=== PATIENT | female | born 1995 | race Hispanic/Latino ===

== ENCOUNTER 2018-11-13 07:46 | Emergency (ER) | payer BC ==
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
--- NOTE | 2018-11-13 08:12 | EDPHYS ---
Physician Documentation [facility] Name: Kandy Kemp Age: 23 yrs Sex: Female : 1995 Arrival Date: 11/13/2018 Time: 07:48 Bed 15 Private MD: Topher Dominguez B ED Physician Saeid Chapman HPI: 11/13 08:09 This 23 yrs old Female presents to ER via Ambulatory with complaints of pm1 Foreign Body In Ear. 08:09 The patient presents with a foreign body sensation. The complaints affect the right pm1 ear. Onset: The symptoms/episode began/occurred this morning. Modifying factors: The symptoms are alleviated by nothing, the symptoms are aggravated by nothing. Associated signs and symptoms: Pertinent positives: pain. Severity of symptoms: in the emergency department the symptoms are unchanged. The patient has not experienced similar symptoms in the past. The patient has not recently seen a physician. 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 - Social history:: Smoking status: Patient/guardian denies using tobacco. - Ebola Screening: : No symptoms or risks identified at this time. ROS: 08:09 Constitutional: Negative for fever, chills, and weight loss, Eyes: Negative for injury, pm1 pain, redness, and discharge. 08:09 Cardiovascular: Negative for chest pain, palpitations, and edema, Respiratory: Negative for shortness of breath, cough, wheezing, and pleuritic chest pain, MS/Extremity: Negative for injury and deformity, Skin: Negative for injury, rash, and discoloration, Neuro: Negative for headache, weakness, numbness, tingling, and seizure. 08:09 ENT: Positive for ear pain, foreign body sensation, Negative for drainage from ear(s). Exam: 08:09 Constitutional: This is a well developed, well nourished patient who is awake, alert, pm1 and in no acute distress. Head/Face: Normocephalic, atraumatic. 08:09 Chest/axilla: Normal chest wall appearance and motion. Nontender with no deformity. No lesions are appreciated. Cardiovascular: Regular rate and rhythm with a normal S1 and S2. No gallops, murmurs, or rubs. Normal PMI, no JVD. No pulse deficits. Respiratory: Lungs have equal breath sounds bilaterally, clear to auscultation and percussion. No rales, rhonchi or wheezes noted. No increased work of breathing, no retractions or nasal flaring. Skin: Warm, dry with normal turgor. Normal color with no rashes, no lesions, and no evidence of cellulitis. MS/ Extremity: Pulses equal, no cyanosis. Neurovascular intact. Full, normal range of motion. 08:09 ENT: External ear(s): are unremarkable, Ear canal(s): foreign body, a piece of a Q-tip, TM's: are normal, no evidence of bulging, no rupture, post removal of foreign body, Examination of the other ear shows no obvious abnormality. 08:09 Neuro: Orientation: is normal, Motor: is normal, moves all fours, Gait: is steady, at a normal pace, without difficulty. Vital Signs: 08:00 BP 105 / 71; Pulse 57; Resp 16 S; Temp 98.3(O); Pulse Ox 99% on R/A; Weight 52.62 kg jl7 (R); Pain 0/10; Procedures: 08:09 Foreign Body Removal: cotton ball, from the right by using alligator clamps, The pm1 patient tolerated the removal well. MDM: 07:55 Patient medically screened. pm1 08:09 Counseling: I had a detailed discussion with the patient and/or guardian regarding: the pm1 historical points, exam findings, and any diagnostic results supporting the discharge/admit diagnosis, to return to the emergency department if symptoms worsen or persist or if there are any questions or concerns that arise at home. 08:09 Data reviewed: vital signs. pm1 Administered Medications: No medications were administered Disposition: 08:41 Co-signature as Attending Physician, Saeid Chapman MD. rn Disposition: 11/13/18 08:11 Discharged to Home. Impression: Foreign body in right ear. - Condition is Stable. - Discharge Instructions: Ear Foreign Body. - Medication Reconciliation Form, Thank You Letter, Antibiotic Education, Prescription Opioid Use form. - Follow up: Emergency Department; When: As needed; Reason: Worsening of condition. Follow up: Private Physician; When: As needed; Reason: Recheck today's complaints, Continuance of care, Re-evaluation by your physician. - Problem is new. - Symptoms have improved. Signatures: Saeid Chapman MD MD rn Marinas, Patrick, RECOVERY UNIT OPERATOR RECOVERY UNIT OPERATOR pm1 Chepe Quinteros RN RN jl7 Corrections: (The following items were deleted from the chart) 08:25 08:11 11/13/2018 08:11 Discharged to Home. Impression: Foreign body in right ear. jl7 Condition is Stable. Forms are Medication Reconciliation Form, Thank You Letter, Antibiotic Education, Prescription Opioid Use. Follow up: Emergency Department; When: As needed; Reason: Worsening of condition. Follow up: Private Physician; When: As needed; Reason: Recheck today's complaints, Continuance of care, Re-evaluation by your physician. Problem is new. Symptoms have improved. pm1
--- NOTE | 2018-11-13 08:26 | ER ---
Nurse's Notes [facility] Name: Kandy Kemp Age: 23 yrs Sex: Female : 1995 Arrival Date: 11/13/2018 Time: 07:48 Bed 15 Private MD: Topher Dominguez B Diagnosis: Foreign body in right ear Presentation: 11/13 08:00 Presenting complaint: Patient states: Cleaning my ear and the cotton came off in my jl7 left ear. Transition of care: patient was not received from another setting of care. Onset of symptoms was November 13, 2018. Risk Assessment: Do you want to hurt yourself or someone else? Patient reports no desire to harm self or others. Initial Sepsis Screen: Does the patient meet any 2 criteria? No. Patient's initial sepsis screen is negative. Does the patient have a suspected source of infection? No. Patient's initial sepsis screen is negative. Care prior to arrival: None. 08:00 Method Of Arrival: Ambulatory jl7 08:00 Acuity: FENG 4 jl7 Triage Assessment: 08:00 General: Appears in no apparent distress. uncomfortable, Behavior is calm, cooperative, jl7 appropriate for age. Pain: Denies pain. EENT: Ear canal w/ foreign body noted from left ear. Neuro: Level of Consciousness is awake, alert, obeys commands. Cardiovascular: Patient's skin is warm and dry. Respiratory: Airway is patent Respiratory effort is even, unlabored, Respiratory pattern is regular, symmetrical. Derm: Skin is pink, warm \T\ dry. 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 - Social history:: Smoking status: Patient/guardian denies using tobacco. - Ebola Screening: : No symptoms or risks identified at this time. Screenin:00 Abuse screen: Denies threats or abuse. Denies injuries from another. Nutritional jl7 screening: No deficits noted. Tuberculosis screening: No symptoms or risk factors identified. Fall Risk None identified. Assessment: 08:23 General: See triage assessment. jl7 Vital Signs: 08:00 BP 105 / 71; Pulse 57; Resp 16 S; Temp 98.3(O); Pulse Ox 99% on R/A; Weight 52.62 kg jl7 (R); Pain 0/10; ED Course: 07:48 Patient arrived in ED. rg4 07:49 Topher Dominguez MD is Private Physician. rg4 07:55 [facility] pm1 07:55 Saeid Chapman MD is Attending Physician. pm1 08:00 Arm band placed on right wrist. jl7 08:00 Patient has correct armband on for positive identification. Bed in low position. Call jl7 light in reach. Side rails up X 1. 08:05 Assist provider with foreign body removal of cotton from left ear canal. using jl7 alligator clamps, Set up for procedure. Performed by Michael Kerr NP Patient tolerated well. 08:18 Chepe Quinteros RN is Primary Nurse. jl7 08:20 Triage completed. jl7 08:23 Patient did not have IV access during this emergency room visit. jl7 Administered Medications: No medications were administered Outcome: 08:11 Discharge ordered by MD. pm1 08:23 Discharged to home ambulatory. jl7 08:23 Condition: stable 08:23 Discharge instructions given to patient, Instructed on discharge instructions, follow up and referral plans. Demonstrated understanding of instructions, follow-up care. 08:25 Patient left the ED. jl7 Signatures: Michael Kerr NP HEAD SOFT SUGAR OPERATOR pm1 Bhupendra Niurka rg4 Chepe Quinteros RN RN jl7 Corrections: (The following items were deleted from the chart) 08:25 08:23 No provider procedures requiring assistance completed. jl7 jl7
[2018-11-13 08:31] VITALS: BP 105/71; TEMP 98.3; O2SAT 99
== END 2018-11-13 08:25 | disposition home or self-care (01) ==
LOC: ER 07:46
PROC: 09C3XZZ Extirpation of Matter from Right External Auditory Canal, External Approach (ICD-10-PCS; principal; 2018-11-13)
DX: T16.1XXA Foreign body in right ear, initial encounter (principal); Z88.8 Allergy status to other drugs, medicaments and biological substances
CPT/HCPCS: 99283

== ENCOUNTER 2021-05-12 11:07 | Inpatient (IN) | payer BC, OTHER ==
[2021-05-19 10:23] LABS: Absolute Lymphocytes (CBC) 1.7 K/uL (0.7-4.9); Hematocrit 29.6 % (36.0-45.0); Lymphocytes % 20.2 % (15.3-44.8); MPV 7.7 fL (7.6-11.3); RBC Red Blood Cell Count 3.62 M/uL (3.86-4.86)
[2021-05-19 10:25] LABS: Urine Appearance CLOUDY (Clear); Urine Bilirubin NEGATIVE (Negative); Urine Blood NEGATIVE (Negative); Urine Color YELLOW (Yellow); Urine Glucose NEGATIVE (Negative); Urine Protein NEGATIVE (Negative); Urine Urobilinogen 0.2 mg/dL (0.2-1.0); Urine pH 7.5 (5.0-7.0)
[2021-05-19 10:29] LABS: Protime INR 0.91
[2021-05-19 10:44] LABS: Urine Bacteria >50 /HPF (<20); Urine RBC <5 /HPF (NONE SEEN)
[2021-05-19 21:29] LABS: RPR (Rapid Plasma Reagin) NON-REACT (NON-REACT)
[2021-05-22] MEDS ORDERED: Ringers Lactate 1,000 ML IV PRN (04:04)
[2021-05-22] MEDS ORDERED: NA CIT/CITRIC AC 30 ML ORAL UDC PO ONE (04:13)
[2021-05-22 04:53] VITALS: O2SAT 99
[2021-05-22] MEDS ORDERED: Ringers Lactate 1,000 ML IV SCH (05:00)
[2021-05-22] MEDS ORDERED: CEFAZOLIN 2 GM in NA CHLORIDE 0.9% 50 ML IVPB SCH (05:00)
[2021-05-22] MEDS ORDERED: METOCLOPRAMIDE 10 MG/2mL INJ IV SCH (05:00)
[2021-05-22] MEDS ORDERED: METHYLERGONOVINE 0.2MG/ML AMP IM ONE (05:01)
[2021-05-22] MEDS ORDERED: METHYLERGONOVINE 0.2 MG TAB PO PRN (05:04)
[2021-05-22] MEDS ORDERED: CEFAZOLIN/SWI 2gm 2 GM/20 ML SYR ONE (05:36)
[2021-05-22 05:39] VITALS: BMI 25.0
[2021-05-22] MEDS ORDERED: RINGERS LACTATE IV SCH ×2 (06:00)
[2021-05-22] MEDS ORDERED: OXYTOCIN IV SCH ×2 (06:00)
[2021-05-22] MEDS: FAMOTIDINE 20 MG/2 ML VIAL IV SCH (06:09)
[2021-05-22] MEDS ORDERED: MORPHINE SULFATE/PF 1 MG/ML (10 ML AMP) ONE (06:56)
[2021-05-22] MEDS ORDERED: BUPIVACAINE 0.5% PF 10 ML VIAL ONE (06:57)
[2021-05-22] MEDS ORDERED: LIDOCAINE 2% MPF 5 ML VIAL ONE (06:57)
[2021-05-22] MEDS ORDERED: OXYTOCIN 10 UNIT/ML ML ONE ×2 (07:03→07:59)
[2021-05-22] MEDS ORDERED: Phenylephrine HCl 10 MG/ML 1 ML VIAL ONE (07:03)
[2021-05-22] MEDS ORDERED: NS 0.9% VIAL 10 ML ONE (07:28)
[2021-05-22] MEDS ORDERED: KETAMINE HCL 500 MG/5 ML VIAL ONE (07:45)
[2021-05-22] MEDS ORDERED: INFLUENZA VACCINE (for 6+ mo) 0.5 ML DOSE IMVAC ONE (08:00)
[2021-05-22] MEDS ORDERED: ACETAMINOPHEN 500 MG TAB PO PRN (08:15)
[2021-05-22] MEDS ORDERED: Oxycodone HCl/Acetaminophen 1 TAB TAB PO PRN ×2 (08:15)
[2021-05-22] MEDS ORDERED: DIPHENHYDRAMINE 50 MG/ML VIAL IV PRN (08:34)
[2021-05-22] MEDS ORDERED: PROMETHAZINE INJ 25 MG/ML AMP IV PRN (08:35)
[2021-05-22] MEDS: MORPHINE 2 MG/ML SYR IV PRN ×2 (08:41→08:58)
[2021-05-22] MEDS ORDERED: ONDANSETRON 4 MG/2 ML VIAL IV PRN (10:24)
[2021-05-22] MEDS: KETOROLAC 30 MG/ML INJ IV PRN (10:24)
[2021-05-22] MEDS ORDERED: ONDANSETRON 4 MG (ODT) TAB PO PRN (10:24)
[2021-05-22] MEDS ORDERED: BISACODYL 10 MG RECTAL SUPP RC PRN (10:24)
[2021-05-22] MEDS ORDERED: CEFAZOLIN/SWI 2gm 2 GM/20 ML SYR IV ONE (10:30)
[2021-05-22] MEDS ORDERED: OXYTOCIN/LR 20 UNIT/1,000 ML BAG IV SCH (11:00)
[2021-05-22] MEDS: D5LR 1,000 ML with OXYTOCIN 20 UNIT IV SCH ×4 (11:00→17:54)
[2021-05-22] MEDS: ACETAMINOPHEN 500 MG TAB PO PRN (12:46)
[2021-05-22] MEDS: IBUPROFEN 600 MG TAB PO PRN (15:25)
[2021-05-22] MEDS: DIPHENHYDRAMINE 25 MG TAB/CAP PO PRN ×2 (15:27→21:33)
[2021-05-22 17:29] LABS: Hematocrit 22.9 % (36.0-45.0)
[2021-05-22] MEDS: METHYLERGONOVINE 0.2 MG TAB PO SCH ×2 (18:18→22:15)
--- NOTE | 2021-05-22 19:03 | OP ---
Surgeon: Faustino Wood MD Anesthesiologist: Dr. Irizarry. Indications For Procedure: A 26-year-old, 39 weeks' gestation, 2 previous C-sections, for repeat esteban arean section. Infection; blood loss; anesthetic complications; injury to bladder, bowel, ureter; po stoperative complications; clots in legs; pneumonia discussed. The patient knows fully well, does no t constitute all the possible problems that could occur during or following surgery. Anesthesia: Spinal block anesthesia. Description Of Procedure: After the patient was prepped and draped, incision was checked with Allis clamps and patient had no response. Incision was made. The incision was made through the fascia. T he fascia was incised and incision carried transversely bilaterally. Anterior and posterior fascial planes were developed. The patient stated that she can feel something, although she was not extremel y uncomfortable at that point. During the remainder of procedure, the patient was given several medi cations by Anesthesia and subsequently did well. The peritoneum was entered bluntly. Low transverse uterine incision was created. A 6 pounds female was delivered without difficulties. Apgars 9 and 9 . Cord blood specimen obtained. Placenta removed manually. Uterus cleared of clot and blood and ext eriorized. Cervical os closed. Cervical os dilated with ring clamp. Uterus was closed with a runni ng locked stitch of 1 chromic followed by an imbricating running lock stitch from midline to the righ t angle. Mild uterine hypertonus, 0.2 mg of Methergine plus IV drip Pitocin. Estimated blood loss 9 00 cc. The gutters were cleared of clot and blood. Uterus replaced in the peritoneal cavity. Inspe ction of suture line showed no further bleeding. Rectus muscles reapproximated using 2 interrupted s utures of 0 Vicryl. The fascia was closed using 1 Vicryl running from either angle to the midline. Subcutaneous tissue closed with 2-0 plain. Nell used for the skin. Patient had been given 2 g of Ancef prior to the procedure. Transferred back to her room in good condition. Final Diagnoses: Term intrauterine . Repeat section. Spinal block anesthesia plus IV supplemental medications. FELYC/MODL Voice ID: [id number] Report ID: [id number]
[2021-05-23] MEDS: METHYLERGONOVINE 0.2 MG TAB PO SCH ×2 (02:14→06:17)
[2021-05-23] MEDS ORDERED: CARBOPROST TROME 250 MCG/ML IM ONE (03:00)
[2021-05-23] MEDS: KETOROLAC 30 MG/ML INJ IV PRN (08:12)
[2021-05-23] MEDS: FAMOTIDINE 20 MG/2 ML VIAL IV SCH (08:12)
[2021-05-23] MEDS ORDERED: MAGNESIUM HYDROXIDE 8% 30 ML PO PRN (08:15)
--- NOTE | 2021-05-23 08:34 | PN ---
Postoperatively, the patient has done quite well. She is only taking Motrin for discomfort. She say s her pain level is 2. Lochia is normal. H and H went a little bit lower than expected, but she did have mild hypotonus and she has been anemic throughout the entire , so I think she is compe nsated. Her pulses are in the 70 range. No complaints or problems this morning. We will remove the [place] and IV. She has already been ambulating. We will start p.o. intake and if all goes well, sen d her home tomorrow. She will probably get her Tdap shot before she leaves the hospital as she has n ot had it. The only complaint she has is some itching, which of course would be from the medications in the spinal block. Full postop talk given. Anticipate dismissal tomorrow. BENI/DARYN Voice ID: [id number] Report ID: [id number]
--- NOTE | 2021-05-23 14:10 | PREOPHP ---
Date of Admission: 05/22/2021 History Of Present Illness: A 26-year-old 4, para 2, 2 previous C-sections will be 39 weeks on Saturday for repeat section. Infection; blood loss; anesthetic complications; injury to bl adder, bowel, ureter; postoperative complications; clots in legs and pneumonia discussed. The patien t knows fully well, she does not constitute all the possible problems that could occur during or foll owing surgery. Family History: Paternal grandfather with hypertension. A sister with cardiac abnormality at . The patient had surgery on her right 2 C sections, breast implants. She is allergic to steroid she says, history of chlamydia in 2013, herpes in 2016. No evidence of herpes actively at this point. Social History: Does not smoke. Physical Examination: HEENT: Clear. Pupils equal, round, reactive to light and accommodation. Conjunctivae well perfused. No oral, lingual, or buccal lesions. Chest: Lungs clear. Heart: Without murmurs, thrills, heaves, or rubs. Breasts: Without masses on previous visits. Abdomen: Term. Baby is vertex, but very high. Cervix is fingertip. Extremities: Clear without edema, cyanosis, or clubbing. Assessment And Plan: For repeat section on Saturday. BENI/DARYN Voice ID: [id number]
[2021-05-23] MEDS: ACETAMINOPHEN 500 MG TAB PO PRN (14:24)
[2021-05-23] MEDS: IBUPROFEN 600 MG TAB PO PRN (16:06)
[2021-05-23 19:53] LABS: HBsAG Nonreactive (Nonreactive)
[2021-05-24] MEDS: IBUPROFEN 600 MG TAB PO PRN ×2 (00:25→09:00)
--- NOTE | 2021-05-24 08:07 | DS ---
Hospital Course: Kandy Sanders is a 26-year-old female, 2 previous sections, for repeat section. The patient had spinal block anesthesia that was not entirely adequate. Was given ketamine and the procedure was then completed without problems. Mild uterine hypertonus, 0.2 mg of Methergine as well as IV drip massage as well as IV drip Pitocin. The patient had anemia on admission, admission hematocrit of about 30 which fell to 23, stable and she was completely asymptomatic with a pulse is being in the 70s and 80s at the entire time postoperatively. No postspinal block problems other than pruritus which is now resolved. A 6-pound female , Apgars 9 and 9. Estimated blood loss _[id number] . The patient is Rh positive, immune to Rubella. Negative strep. She did not get her Tdap shot during the , but requested before she leaves. She has no complaints or problems. She has been using Motrin only for analgesia. Requests no analgesics. Other than that, she is to come back to my office in 1 week for followup to report any temperature elevation of 100 degrees or greater, severe pain, heavy bleeding, or any other type of abnormalities. Final Diagnosis: Repeat section, mild uterine hypotonus. BENI/DARYN Voice ID: [id number] Report ID: [id number]
[2021-05-24] MEDS ORDERED: TDAP (DIPHTH,PERTUSS(ACELL),TET VAC) 0.5 ML VIAL IMVAC ONE (09:00)
[2021-05-24] MEDS ORDERED: INFLUENZA VACCINE (for 6+ mo) 0.5 ML DOSE IMVAC ONE (09:00)
[2021-05-24 09:34] VITALS: BP 112/65; TEMP 98
== END 2021-05-24 09:30 | disposition home or self-care (01) | DRG 788 ==
LOC: 2ND-WC 05-22 04:05
PROVIDERS: ADMIT Specialist; ATTEND Specialist
PROC: 10D00Z1 Extraction of Products of Conception, Low, Open Approach (ICD-10-PCS; principal; 2021-05-22 07:30)
DX: O34.211 Maternal care for low transverse scar from previous cesarean delivery (principal); O99.02 Anemia complicating childbirth; D64.9 Anemia, unspecified; O62.2 Other uterine inertia; Z3A.39 39 weeks gestation of pregnancy; Z37.0 Single live birth; Z23 Encounter for immunization; Z20.822 Contact with and (suspected) exposure to COVID-19
CPT/HCPCS: 36415; 81001; 85014; 85018; 85025; 85610; 85730; 86592; 86850; 86900; 86901; 87086; 87088; 87340; 88307; 90471; J0690; J2210; J2270; J2370; J2405; J2590; J2765; J7120; J7121; Q2035; U0003

== ENCOUNTER 2022-05-31 07:30 | Emergency (ER) | payer OTHER ==
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
[2022-05-31 08:16] LABS: Absolute Lymphocytes (CBC) 1.6 K/uL (0.7-4.9); Hematocrit 30.8 % (36.0-45.0); Lymphocytes % 21.4 % (15.3-44.8); MCV 77.3 fL (80-100); MPV 7.2 fL (7.6-11.3); RBC Red Blood Cell Count 3.99 M/uL (3.86-4.86)
[2022-05-31 08:17] LABS: Specific Gravity 1.011 (1.005-1.030); Urine Bilirubin NEGATIVE (Negative); Urine Blood 1+ (Negative); Urine Clarity Clear (Clear); Urine Color Colorless (Yellow); Urine Glucose NEGATIVE (Negative); Urine Protein NEGATIVE (Negative); Urine Urobilinogen Normal (Normal)
[2022-05-31 08:42] LABS: Potassium 3.2 mEq/L (3.5-5.1)
[2022-05-31] MEDS ORDERED: NA CHLORIDE 0.9% 1,000 ML ONE (09:00)
[2022-05-31] MEDS ORDERED: ACETAMINOPHEN 500 MG TAB ONE (09:00)
--- NOTE | 2022-05-31 10:08 | RAD REPORT ---
EXAM DESCRIPTION: US - OB Limited - 05/31/2022 8:50 am CLINICAL HISTORY: Abd cramping, ;Vaginal bleeding COMPARISON: OB Complete dated 04/24/2021 TECHNIQUE: Sonographic grayscale and color flow images of a first-trimester were obtained through a transabdominal approach. FINDINGS: A single live intrauterine is identified. Fetus in variable presentation heart rate: 152 beats per minute. dating was not performed. Cervical internal os is closed. Cervical channel measures 1.9 centimeter. Placenta is formed posterio rly with few small venous lakes within. No evidence of subchorionic fluid collections. Maternal ovaries are unremarkable. No free fluid. IMPRESSION: 1. Single live intrauterine . heart rate 152 beats per minute.
--- NOTE | 2022-05-31 10:22 | ER ---
Nurse's Notes [facility] Name: Kandy Sanders Age: 27 yrs Sex: Female : 1995 Arrival Date: 05/31/2022 Time: 07:33 Bed 7 Private MD: Diagnosis: Threatened Presentation: 05/31 07:48 Chief complaint: Patient states: "GUSH OF BLOOD CAME OUT AT 0400." USED 4 PADS TODAY. bp Coronavirus screen: At this time, the client does not indicate any symptoms associated with coronavirus-19. Ebola Screen: No symptoms or risks identified at this time. Initial Sepsis Screen: Does the patient meet any 2 criteria? No. Patient's initial sepsis screen is negative. Does the patient have a suspected source of infection? No. Patient's initial sepsis screen is negative. Risk Assessment: Do you want to hurt yourself or someone else? Patient reports no desire to harm self or others. Onset of symptoms was May 31, 2022 at 04:00. 07:48 Method Of Arrival: Ambulatory bp 07:48 Acuity: FENG 3 bp Triage Assessment: 07:52 General: Appears uncomfortable, Behavior is cooperative, appropriate for age, anxious. bp Pain: Complains of pain in pelvis. EENT: No deficits noted. Neuro: No deficits noted. Cardiovascular: No deficits noted. Respiratory: No deficits noted. GI: No signs and/or symptoms were reported involving the gastrointestinal system. : Reports vaginal bleeding that is heavy flow. Derm: No deficits noted. Musculoskeletal: No deficits noted. 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 - Social history:: Smoking status: Patient denies any tobacco usage or history of. Screenin:45 [facility] ED Fall Risk Assessment (Adult) History of falling in the last 3 months, bp including since admission No falls in past 3 months (0 pts). Abuse screen: Denies threats or abuse. Denies injuries from another. Nutritional screening: No deficits noted. Tuberculosis screening: No symptoms or risk factors identified. Assessment: 07:45 General: SEE TRIAGE NOTE. bp 09:01 Reassessment: PT RETURNED FROM US. bp Vital Signs: 07:48 BP 134 / 79; Pulse 71; Resp 16; Temp 98; Pulse Ox 100% ; Weight 56.7 kg; Height 5 ft. 3 bp in. ; 09:00 BP 101 / 69; Pulse 58; Resp 16; Pulse Ox 100% ; bp 07:48 Body Mass Index 22.14 (56.70 kg, 160.02 cm) bp ED Course: 07:33 Patient arrived in ED. am2 07:44 Rahul Parker MD is Attending Physician. jr11 07:45 Patient has correct armband on for positive identification. Bed in low position. Call bp light in reach. Side rails up X2. 07:46 Hank Brock, RN is Primary Nurse. bp 07:50 Triage completed. bp 07:51 Mikaela Haney FNP-C is PHCP. snw 07:53 Arm band placed on. bp 07:53 Inserted saline lock: 20 gauge in right antecubital area, using aseptic technique. bp Blood collected. 08:32 Abo/rh Typing Sent. bp 08:32 US OB Limited Sent. bp 09:26 US OB Limited In Process Unspecified. EDMS 10:43 No provider procedures requiring assistance completed. IV discontinued, intact, jl7 bleeding controlled, No redness/swelling at site. Pressure dressing applied. Administered Medications: 09:01 Drug: Acetaminophen PO 1000 mg Route: PO; bp 09:01 Drug: NS 0.9% IV 1000 ml Route: IV; Rate: 1 bolus; Site: right antecubital; bp Medication: 10:44 VIS not applicable for this client. jl7 Outcome: 10:21 Discharge ordered by . snw 10:43 Discharged to home ambulatory, with family. jl7 10:43 Condition: stable 10:43 Discharge instructions given to patient, family, Instructed on discharge instructions, follow up and referral plans. Demonstrated understanding of instructions, follow-up care. 10:44 Patient left the ED. jl7 Signatures: Dispatcher [employer] EDMS Mikaela Haney FNP-C FNP-Josselyn Shankar RN RN Chepe Quinteros RN RN jl7 Susie Agustin am2 Hank Brock, ENA RN bp Rahul Parker MD MD [email or web address] Corrections: (The following items were deleted from the chart) 09: 08:31 CBC+H.LAB.BRZ drawn and sent. bp EDMS 09:43 08:31 BASIC METABOLIC PANEL+C.LAB.BRZ drawn and sent. bp EDMS 09:44 08:31 Test, Urine+UC.LAB.BRZ drawn and sent. bp EDMS 09:44 08:32 Urinalysis+U.LAB.BRZ drawn and sent. bp EDMS
--- NOTE | 2022-05-31 10:22 | EDPHYS ---
Physician Documentation [facility] Name: Kandy Sanders Age: 27 yrs Sex: Female : 1995 Arrival Date: 05/31/2022 Time: 07:33 Bed 7 Private MD: ED Physician aRhul Parker HPI: 05/31 09:05 This 27 yrs old Female presents to ER via Ambulatory with complaints of snw Vaginal Bleeding. 09:05 The patient presents with vaginal bleeding that is moderate, with clots. Onset: The snw symptoms/episode began/occurred suddenly, this morning. Associated signs and symptoms: Pertinent positives: cramping. Severity of symptoms: At their worst the symptoms were moderate. The patient has not experienced similar symptoms in the past. The patient has not recently seen a physician. 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 - Social history:: Smoking status: Patient denies any tobacco usage or history of. ROS: 09:05 Constitutional: Negative for fever, chills, and weight loss, Eyes: Negative for injury, snw pain, redness, and discharge, ENT: Negative for injury, pain, and discharge, Neck: Negative for injury, pain, and swelling, Cardiovascular: Negative for chest pain, palpitations, and edema, Respiratory: Negative for shortness of breath, cough, wheezing, and pleuritic chest pain, Back: Negative for injury and pain, MS/Extremity: Negative for injury and deformity, Skin: Negative for injury, rash, and discoloration, Neuro: Negative for headache, weakness, numbness, tingling, and seizure, Psych: Negative for depression, anxiety, suicide ideation, homicidal ideation, and hallucinations. 09:05 Abdomen/GI: Positive for abdominal cramps. 09:05 : Positive for vaginal bleeding. Exam: 09:04 Constitutional: This is a well developed, well nourished patient who is awake, alert, snw and in no acute distress. Head/Face: Normocephalic, atraumatic. Eyes: Pupils equal round and reactive to light, extra-ocular motions intact. Lids and lashes normal. Conjunctiva and sclera are non-icteric and not injected. Cornea within normal limits. Periorbital areas with no swelling, redness, or edema. ENT: Nares patent. No nasal discharge, no septal abnormalities noted. Tympanic membranes are normal and external auditory canals are clear. Oropharynx with no redness, swelling, or masses, exudates, or evidence of obstruction, uvula midline. Mucous membranes moist. Neck: Trachea midline, no thyromegaly or masses palpated, and no cervical lymphadenopathy. Supple, full range of motion without nuchal rigidity, or vertebral point tenderness. No Meningismus. Chest/axilla: Normal chest wall appearance and motion. Nontender with no deformity. No lesions are appreciated. Cardiovascular: Regular rate and rhythm with a normal S1 and S2. No gallops, murmurs, or rubs. Normal PMI, no JVD. No pulse deficits. Respiratory: Lungs have equal breath sounds bilaterally, clear to auscultation and percussion. No rales, rhonchi or wheezes noted. No increased work of breathing, no retractions or nasal flaring. Back: No spinal tenderness. No costovertebral tenderness. Full range of motion. Skin: Warm, dry with normal turgor. Normal color with no rashes, no lesions, and no evidence of cellulitis. MS/ Extremity: Pulses equal, no cyanosis. Neurovascular intact. Full, normal range of motion. Neuro: Awake and alert, GCS 15, oriented to person, place, time, and situation. Cranial nerves II-XII grossly intact. Motor strength 5/5 in all extremities. Sensory grossly intact. Cerebellar exam normal. Normal gait. 09:04 Abdomen/GI: Inspection: abdomen appears normal, Bowel sounds: normal, Palpation: mild abdominal tenderness, in the left lower quadrant. Vital Signs: 07:48 BP 134 / 79; Pulse 71; Resp 16; Temp 98; Pulse Ox 100% ; Weight 56.7 kg; Height 5 ft. 3 bp in. ; 09:00 BP 101 / 69; Pulse 58; Resp 16; Pulse Ox 100% ; bp 07:48 Body Mass Index 22.14 (56.70 kg, 160.02 cm) bp MDM: 07:51 Patient medically screened. snw 10:22 Differential diagnosis: dysmenorrhea, urinary tract infection. Data reviewed: vital snw signs, nurses notes. Counseling: I had a detailed discussion with the patient and/or guardian regarding: the historical points, exam findings, and any diagnostic results supporting the discharge/admit diagnosis, lab results, radiology results, the need for outpatient follow up, for definitive care, to return to the emergency department if symptoms worsen or persist or if there are any questions or concerns that arise at home. Special discussion: Based on the history and exam findings, there is no indication for further emergent testing or inpatient evaluation. I discussed with the patient/guardian the need to see the OB Gyne specialist for further evaluation of the symptoms. 10:30 ED course: headache resolved. Pt in no distress. Labs and US report given to pt. snw 05/31 07:50 Order name: Abo/rh Typing bp 05/31 08:29 Order name: CBC with Automated Diff EDMS 05/31 08:29 Order name: Test, Urine EDMS 05/31 08:29 Order name: Urinalysis w/ reflexes EDMS 05/31 08:43 Order name: ABO/RH typing EDMS 05/31 08:43 Order name: Basic Metabolic Panel EDMS 05/31 07:59 Order name: US OB Limited; Complete Time: 10:17 snw 05/31 07:50 Order name: IV Saline Lock; Complete Time: 07:51 bp 05/31 07:50 Order name: Labs collected and sent; Complete Time: 07:51 bp 05/31 07:50 Order name: NPO; Complete Time: 07:51 bp Administered Medications: 09:01 Drug: Acetaminophen PO 1000 mg Route: PO; bp 09:01 Drug: NS 0.9% IV 1000 ml Route: IV; Rate: 1 bolus; Site: right antecubital; bp Disposition: 13:04 I reviewed the patient's care provided by the Advanced Practice Provider and agree with jr11 the diagnosis and treatment plan. Disposition Summary: 05/31/22 10:21 Discharge Ordered Location: Home snw Condition: Stable snw Diagnosis - Threatened snw Followup: snw - With: Emergency Department - When: As needed - Reason: Worsening of condition Followup: snw - With: Private Physician - When: 2 - 3 days - Reason: Recheck today's complaints, Continuance of care, Re-evaluation by your physician Discharge Instructions: - Discharge Summary Sheet snw - Care snw - Vaginal Bleeding During , First Trimester snw - Vaginal Bleeding During , Second Trimester, Jymt-iv-[id number] snw Forms: - Medication Reconciliation Form snw - Thank You Letter snw - Antibiotic Education snw - Prescription Opioid Use snw Signatures: Dispatcher [employer] EDMS Mikaela Haney, KNITTING MACHINE MECHANIC-C KNITTING MACHINE MECHANIC-Csnw Josselyn Glasgow, RN RN ss Hank Brock RN RN bp Rahul Parker MD MD [email or web address] Corrections: (The following items were deleted from the chart) 09:22 ABO/RH typing ordered. EDMS EDMS 09:22 OB Limited ordered. EDMS EDMS 09:43 08:30 BASIC METABOLIC PANEL+C.LAB.BRZ ordered. EDMS EDMS :43 08:30 CBC+H.LAB.BRZ ordered. EDMS EDMS 09:44 08:30 Urinalysis+U.LAB.BRZ ordered. EDMS EDMS :44 08:30 Test, Urine+UC.LAB.BRZ ordered. EDMS EDMS
[2022-05-31 15:31] VITALS: TEMP 98; O2SAT 100
[2022-05-31 15:37] VITALS: BP 101/69
== END 2022-05-31 10:44 | disposition home or self-care (01) ==
LOC: ER 07:30
DX: O20.0 Threatened abortion (principal); Z88.8 Allergy status to other drugs, medicaments and biological substances
CPT/HCPCS: 85025; 80048; 36415; 86900; 81025; 86901; 81003; 76815; 99284; J7030

== ENCOUNTER 2023-01-16 23:26 | Emergency (ER) | payer OTHER ==
--- OUTSIDE RECORDS SUMMARY | 2023-01-16 23:31 | XMS REPORT | Continuity of Care Document ---
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 [id number] 14:19:00 Test Item Value Reference Range Interpretation Comments SODIUM (test code = 139 mEq/L 135-145 N NA) POTASSIUM (test code 3.9 mEq/L 3.5-5.0 N = K) CHLORIDE (test code 105 mEq/L 100-115 N = CL) CARBON DIOXIDE (test 21 mEq/L 22-31 L code = CO2) ANION GAP (test code 17.30 10-20 N = GAP) GLUCOSE (test code = 69 mg/dL 65-110 N GLU) BLOOD UREA NITROGEN 5 mg/dL 7-18 L (test code = BUN) CREATININE (test 0.6 mg/dL 0.5-1.0 N code = CREAT) TOTAL PROTEIN (test 7.0 gm/dL 6.3-8.2 N code = PROT) ALBUMIN (test code = 3.1 gm/dL 3.4-4.8 L ALB) CALCIUM (test code = 9.2 mg/dL 8.4-10.2 N CA) BILIRUBIN TOTAL 0.3 mg/dL 0.2-1.0 N (test code = BILT) SGOT/AST (test code 15 units/L 15-37 N = AST) SGPT/ALT (test code 12 units/L 12-78 N = ALT) ALKALINE PHOSPHATASE 183 units/L 46-116 H TOTAL (test code = ALKP) GLOMERULAR 127 ml/min >60 N The Glomerular FILTRATION RATE Filtration R ate is a (test code = GFR) calculated parameterbased on serum Creatinin e, patient age and sex. GFR valuesless than 60 mL/min/1.73 squ are meters are winsome cative ofChronic Kidne y Disease. Values less than 15 mL/min/1.73squa re meters indicate Kidney failure. The calculation for GFR is based on the CK D-EPI (2020) calculat ion. This formulais race indifferent and is the recommended for charlie for GFRby the N ational Kidney Foundati on for Adults.The GFR will not calculate i f the sex is unknown or if thepatient's ag e is <18 years. CBC W/AUTO [id number] 21:58:00 Test Item Value Reference Range Interpretation Comments WHITE BLOOD CELL (test 8.9 K/mm3 6.5-12.3 N code = WBC) RED BLOOD CELL (test 3.99 M/mm3 3.51-4.69 N code = RBC) HEMOGLOBIN (test code = 10.3 g/dL 10.1-13.8 N HGB) HEMATOCRIT (test code = 33.5 % 32.5-41.8 N HCT) MEAN CELL VOLUME (test 84.0 fL 84.6-96.6 L code = MCV) MEAN CELL HGB (test 25.8 pg 27.3-33.9 L code = MCH) MEAN CELL HGB 30.7 gm/dL 32.0-34.2 L CONCETRATION (test code = MCHC) RED CELL DISTRIBUTION 27.2 % 12.2-16.3 H WIDTH (test code = RDW) PLATELET COUNT (test 219 K/mm3 134-363 N code = PLT) MEAN PLATELET VOLUME 10.1 fL 9.2-12.7 N (test code = MPV) NEUTROPHIL % (test code 71.3 % 57.9-77.3 N = NT%) LYMPHOCYTE % (test code 19.0 % 14.5-29.7 N = LY%) MONOCYTE % (test code = 7.5 % 3.6-10.2 N MO%) EOSINOPHIL % (test code 1.3 % 0.0-3.0 N = EO%) BASOPHIL % (test code = 0.2 % 0.1-0.9 N BA%) NEUTROPHIL # (test code 6.4 K/mm3 = NT#) LYMPHOCYTE # (test code 1.7 K/mm3 = LY#) MONOCYTE # (test code = 0.7 K/mm3 MO#) EOSINOPHIL # (test code 0.12 K/mm3 = EO#) BASOPHIL # (test code = 0.0 K/mm3 BA#) RBC MORPHOLOGY REQUIRED ABNORMAL NORMAL MACR 1+MICRO 1+ANISO (test code = RBCM) 1+ PLATELET MORPHOLOGY ABNORMAL NORMAL LARGE PL ATELETS REQUIRED (test code = PLTMR) AG HEPATITIS B [id number] 19:18:00 Test Item Value Reference Range Interpretation Comments AG HEPATITIS B SURFACE (test code NONREACTIVE NONREACTIVE = HBSAG) AB HEPATITIS C [id number] 19:18:00 Test Item Value Reference Range Interpretation Comments AB HEPATITIS C (test code = NONREACTIVE NONREACTIVE HCVAB) SIGNAL TO CUTOFF (test code = 0.06 <0.80 N CUTOFF) AB [id number] 19:18:00 Test Item Value Reference Range Interpretation Comments AB TREPONEMA (test code = TREPAB) NONREACTIVE NONREACTIVE AB HIV 1 19:18:00 Test Item Value Reference Range Interpretation Comments AB HIV 1 2 (test NONREACTIVE NONREACTIVE Done by [facility] code = [id number]) 4th Gen HIV Ag/Ab Combo Screen COMPREHENSIVE METABOLIC [id number] 18:42:00 Test Item Value Reference Range Interpretation Comments SODIUM (test code = 138 mEq/L 135-145 N NA) POTASSIUM (test code 3.8 mEq/L 3.5-5.0 N = K) CHLORIDE (test code 102 mEq/L 100-115 N = CL) CARBON DIOXIDE (test 23 mEq/L 22-31 N code = CO2) ANION GAP (test code 16.80 10-20 N = GAP) GLUCOSE (test code = 82 mg/dL 65-110 N GLU) BLOOD UREA NITROGEN 8 mg/dL 7-18 N (test code = BUN) CREATININE (test 0.6 mg/dL 0.5-1.0 N code = CREAT) TOTAL PROTEIN (test 6.5 gm/dL 6.3-8.2 N code = PROT) ALBUMIN (test code = 2.8 gm/dL 3.4-4.8 L ALB) CALCIUM (test code = 8.8 mg/dL 8.4-10.2 N CA) BILIRUBIN TOTAL 0.2 mg/dL 0.2-1.0 N (test code = BILT) SGOT/AST (test code 15 units/L 15-37 N = AST) SGPT/ALT (test code 9 units/L 12-78 L = ALT) ALKALINE PHOSPHATASE 166 units/L 46-116 H TOTAL (test code = ALKP) GLOMERULAR 127 ml/min >60 N The Glomerular FILTRATION RATE Filtration R ate is a (test code = GFR) calculated parameterbased on serum Creatinin e, patient age and sex. GFR valuesless than 60 mL/min/1.73 squ are meters are winsome cative ofChronic Kidne y Disease. Values less than 15 mL/min/1.73squa re meters indicate Kidney failure. The calculation for GFR is based on the CK D-EPI (2020) calculat ion. This formulais race indifferent and is the recommended for charlie for GFRby the N ational Kidney Foundati on for Adults.The GFR will not calculate i f the sex is unknown or if thepatient's ag e is <18 years. BASIC METABOLIC [id number] 20:22:00 Test Item Value Reference Range Interpretation Comments SODIUM (test code = 134 mEq/L 135-145 L NA) POTASSIUM (test code 3.3 mEq/L 3.5-5.0 L = K) CHLORIDE (test code 101 mEq/L 100-115 N = CL) CARBON DIOXIDE (test 23 mEq/L 22-31 N code = CO2) ANION GAP (test code 13.70 10-20 N = GAP) GLUCOSE (test code = 81 mg/dL 65-110 N GLU) BLOOD UREA NITROGEN 7 mg/dL 7-18 N (test code = BUN) GLOMERULAR 127 ml/min >60 N The Glomerular FILTRATION RATE Filtration R ate is a (test code = GFR) calculated parameterbased on serum Creatinine, pat ient age and sex. GFR va luesless than 60 mL/min/ 1.73 square meters a re indicative ofCh ronic Kidney Disease. Values less than 15 mL/min/1.73squa re meters indicate Kidney failure. The calculation for GFR is based on the CK D-EPI (2020) calculat ion. This formulais race indifferent and is the recommended for charlie for GFRby the Natio nal Kidney Foundati on for Adults.The GFR will not calculate if th e sex is unknown or if thepatient's ag e is <18 years. CREATININE (test 0.6 mg/dL 0.5-1.0 N code = CREAT) CALCIUM (test code = 9.0 mg/dL 8.4-10.2 N CA) LIVER [id number] 20:22:00 Test Item Value Reference Range Interpretation Comments TOTAL PROTEIN (test code = PROT) 7.6 gm/dL 6.3-8.2 N ALBUMIN (test code = ALB) 3.5 gm/dL 3.4-4.8 N BILIRUBIN TOTAL (test code = BILT) 0.2 mg/dL 0.2-1.0 N BILIRUBIN DIRECT (test code = 0.1 mg/dL <0.2 N BILD) SGOT/AST (test code = AST) 10 units/L 15-37 L SGPT/ALT (test code = ALT) 15 units/L 12-78 N ALKALINE PHOSPHATASE TOTAL (test 61 units/L 46-116 N code = ALKP) [id number] 20:22:00 Test Item Value Reference Range Interpretation Comments LIPASE (test code = LIP) 66 units/L 73-393 L HCG [id number] 20:08:00 Test Item Value Reference Range Interpretation Comments HCG SERUM (test 78304 INTERPRETATI ON:VALUES BETWEEN code = HCG) 15-20 milliInte rnational units/mL NEED T O BERETESTED WITHIN 48 HOURS . All units for these ranges ar e in milliInternatio nalunits/mL0-1 WK AFTER CONCEP TION 0-50 1-2 WKS AFTER SHANE PTION 40-3002-3 WKS AFTER SHANE PTION 100-1,0003-4 WK S AFTER CONCEPTION 500- 6,0001-2 MONTHS AFTER CONCEPTIO N 5,000-200,0002- 3 MONTHS AFTER CONCEPTION 10,0 00-100,0002ND TRIMESTER 3,000 -50,0003RD TRIMESTER 1,000 -50,000 SPECIMENS WITH AN HCG LEVEL FROM 0-6 milliInternatio nalunits/mL SHOULD BE CONSI DERED NEGATIVE CBC W/AUTO [id number] 19:22:00 Test Item Value Reference Range Interpretation Comments WHITE BLOOD CELL (test code = WBC) 8.6 K/mm3 6.5-12.3 N RED BLOOD CELL (test code = RBC) 4.05 M/mm3 3.51-4.69 N HEMOGLOBIN (test code = HGB) 10.4 g/dL 10.1-13.8 N HEMATOCRIT (test code = HCT) 32.1 % 32.5-41.8 L MEAN CELL VOLUME (test code = MCV) 79.3 fL 84.6-96.6 L MEAN CELL HGB (test code = MCH) 25.7 pg 27.3-33.9 L MEAN CELL HGB CONCETRATION (test 32.4 gm/dL 32.0-34.2 N code = MCHC) RED CELL DISTRIBUTION WIDTH (test 15.6 % 12.2-16.3 N code = RDW) PLATELET COUNT (test code = PLT) 304 K/mm3 134-363 N MEAN PLATELET VOLUME (test code = 9.1 fL 9.2-12.7 L MPV) NEUTROPHIL % (test code = NT%) 64.2 % 57.9-77.3 N LYMPHOCYTE % (test code = LY%) 27.3 % 14.5-29.7 N MONOCYTE % (test code = MO%) 7.3 % 3.6-10.2 N EOSINOPHIL % (test code = EO%) 0.8 % 0.0-3.0 N BASOPHIL % (test code = BA%) 0.2 % 0.1-0.9 N NEUTROPHIL # (test code = NT#) 5.5 K/mm3 LYMPHOCYTE # (test code = LY#) 2.4 K/mm3 MONOCYTE # (test code = MO#) 0.6 K/mm3 EOSINOPHIL # (test code = EO#) 0.07 K/mm3 BASOPHIL # (test code = BA#) 0.0 K/mm3 RBC MORPHOLOGY REQUIRED (test code NORMAL NORMAL = RBCM) PLATELET MORPHOLOGY REQUIRED (test NORMAL NORMAL code = PLTMR) UA RFLX MICR CULT IF [id number] 19:16:00 Test Item Value Reference Range Interpretation Comments UA COLOR (test code = COLU) COLORLESS YELLOW UA APPEARANCE (test code = CLEAR CLEAR APPU) UA GLUCOSE DIPSTICK (test code NEGATIVE NEG = DGLUU) UA BILIRUBIN DIPSTICK (test NEGATIVE NEG code = BILU) UA KETONE DIPSTICK (test code 1+ NEG A = KETU) UA SPECIFIC GRAVITY (test code 1.008 1.001-1.035 N = SGU) UA BLOOD DIPSTICK (test code = 1+ NEG A JASE) UA PH DIPSTICK (test code = 6.0 5-9 SUZY) UA PROTEIN DIPSTICK (test code NEGATIVE NEG = PROU) UA UROBILINIOGEN DIPSTICK NEGATIVE mg/dL NEG (test code = URO) UA NITRITE DIPSTICK (test code NEG NEG = RAJANI) UA LEUKOCYTE ESTERASE DIPSTICK NEG NEG (test code = LEUU) UA WBC (test code = WBCU) 0-2 #/hpf NONE SEEN UA RBC (test code = RBCU) 0-2 #/hpf NONE SEEN UA EPITHELIAL CELLS (test code RARE #/HPF RARE-FEW = EPIU) UA BACTERIA (test code = BACU) RARE /HPF RARE-FEW UA MUCUS (test code = MUCU) RARE NONE SEEN Indication for culture: Suprapubic PainSpecimen Description: CLEAN CATCH- US PREG UT [id number] 00:00:00 [facility] 1995 Sex: F Patient Name: CHRISTIANO ROJAS Unit No: [id number] EXAMS: CPT CODE: [id number] US PREG UT TRANSVAGINAL 27798 PROCEDURE INFORMATION: Exam: US , Limited and US , Transvaginal Exam date and time: 05/31/2022 8:54 PM Age: 27 years old Clinical indication: Lmp or gestational age (in weeks): 15.0; Antepartum complications; Bleeding; complicated by abdominal or pelvic pain; Lower; Second trimester (14 weeks 0 days to 27 weeks 6 days); ; Prior surgery; Surgery type: C/s x3; Additional info: Vag bleed, abd pain LABS AND CLINICAL REPORTS: Last menstrual period start date: 02/22/2022 Gestational age (Established): 14 w 0 d Estimated due date (Established): 11/29/2022 TECHNIQUE: Imaging protocol: Real-time ultrasound of the maternal uterus with image documentation. Transvaginal imaging was used for better evaluation of the fetus, adnexa, and/or cervix. Exam focused on the clinical indication. COMPARISON: No relevant prior studies available. FINDINGS: EGA by LMP: 14weeks 0 day LULÚ by LMP: 11/29/2022 Gestation: Dowd Presentation: Variable heart rate: 137bpm Amniotic fluid: Amniotic fluid is normal. Single deep amniotic fluid pocket measures 3.1 cm. Placenta: Posterior, grade 1. Complete placenta previa seen. There is a 2.0 x 0.5 x 3.5 cm subchorionic bleed in air placental tip/cervix. Cervical length: 3.6 cm Right ovary: Right ovary measures 2.2 x 1.2 x 1.7 cm. Normal flow seen. Left ovary: Left ovary measures 2.6 x 1.6 x 1.7 cm. Normal flow seen. IMPRESSION: 1. Single viable intrauterine gestation in the presentation. 2. There is a 2.0 x 0.5 x 3.5 cm subchorionic bleed in air placental tip/cervix. 3. Complete placenta previa. at 2217 Reported and signed by: Ghulam Manriquez M.D. The [facility] NAME: CHRISTIANO ROJAS Radiology Department PHYS: Ivette Engle MD [address] : 1995 AGE: 27 SEX: F [place] [address] LOC: Javier.ERS PHONE #: [phone] EXAM DATE: 05/31/2022 STATUS: REG ER FAX #: [phone] RAD NO: Page 1 Signed Report (CONTINUED) Patient Name: CHRISTIANO ROJAS Unit No: [id number] EXAMS: CPT CODE: [id number] US PREGUT TRANSVAGINAL 47232 (Continued) CC: Ivette Head MD; Nereida Canales MD Technologist: Do Reeves RDMS Probe: [id number] Trnscrbd D/ (2216) GCD.CPS Orig Print D/T: S: 05/31/2022 (2216) [facility] NAME: BOBCHRISTIANO Radiology Department PHYS: Ivette Engle MD [address] : 1995 AGE: 27 SEX: F [place], [place] [address] LOC: F.ERS PHONE #: [phone] EXAM DATE: 05/31/2022 STATUS: REG ER FAX #: [phone] RAD NO: P age 3 Signed Report Patient Name: CHRISTIANO ROJAS Unit No: [id number] EXAMS: CPT CODE: [id number] PREG UT TRANSVAGINAL 22905 (Continued) [facility] NAME: CHRISTIANO ROJAS Radiology Department PHYS: Ivette Engle MD [address] : 1995 AGE: 27 SEX: F [place], [place] [address] LOC: HeribertoERS PHONE #: [phone] EXAM DATE: 05/31/2022 STATUS: REG ER FAX #: [phone] RAD NO: Page 3 Signed Report- US [id number] 00:00:00 [facility] : 1995 Sex: F Patient Name: CHRISTIANO ROJAS Unit No: [id number] EXAMS: CPT CODE: [id number] US LTD [id number] INFORMATION: Exam: US , Limited and US , Transvaginal Exam date and time: 05/31/2022 8:54 PM Age: 27 years old Clinical indication: Lmp or gestational age (in weeks): 15.0; Antepartum complications; Bleeding; complicated by abdominal or pelvic pain; Lower; Second tr imester (14 weeks 0 days to 27 weeks 6 days); ; Prior surgery; Surgery type: C/s x3; Additional info: Vag bleed, abd pain LABS AND CLINICAL REPORTS: Last menstrual period start date: 02/22/2022Gestational age (Established): 14 w 0 d Estimated due date (Established): 11/29/2022 TECHNIQUE: Imaging protocol: Real-time ultrasound of the maternal uterus with image documentation. Transvaginal imaging was used for better evaluation of the fetus, adnexa, and/or cervix. Exam focused on the clinical indication. COMPARISON: No relevant prior studies available. FINDINGS: EGA by LMP: 14 weeks 0day LULÚ by LMP: 11/29/2022 Gestation: Dowd Presentation: Variable heart rate: 137 bpm Amniotic fluid: Amniotic fluid is normal. Single deep amniotic fluid pocket measures 3.1 cm. Placenta: Posterior, grade 1. Complete placenta previa seen. There is a 2.0 x 0.5 x 3.5 cm subchorionic bleed inair placental tip/cervix. Cervical length: 3.6 cm Right ovary: Right ovary measures 2.2 x 1.2 x 1.7 cm. Normal flow seen. Left ovary: Left ovary measures 2.6 x 1.6 x 1.7 cm. Normal flow seen. IMPRESSION : 1. Single viable intrauterine gestation in the presentation. 2. There is a 2.0 x 0.5 x 3.5 cm subchorionic bleed in air placental tip/cervix. 3. Complete placenta previa. at 2217 Reported and signed by: Ghulam Manriquez M.D. [facility] NAME: CHRISTIANO ROJAS Radiology Department PHYS: Ivette Engle MD [address] : 1995 AGE: 27 SEX: F [place], [place] [address] LOC: CHRISTIAN PHONE #: [phone] EXAM DATE: 05/31/2022 STATUS: REG ER FAX #: [phone] RAD NO: Page 1 Signed Report (CONTINUED) Patient Name: CHRISTIANO ROJAS Unit No: [id number] EXAMS: CPT CODE: [id number] US [id number] (Continued) CC: Ivette Head MD; Nereida Canales MD Technologist: Do Reeves RDMS Probe: Trnscrbd D/ (2217) GCD.CPS Orig Print D/T: S: 05/31/2022 (2217) [facility] NAME: CHRISTIANO ROJAS Radiology Department PHYS: Ivette Engle MD [address]OB: 1995 AGE: 27 SEX: F [place] [id number] LOC: F.ERS PHONE #: [phone] EXAM DATE: 05/31/2022 STATUS: REG ER FAX #: [phone] RAD NO: Page 2 Signed Report Patient Name: CHRISTIANO ROJAS Unit No: [id number] EXAMS: CPT CODE: [id number] LTD 51217 (Continued) [facility] NAME: DIONISIO ROJASANTHA Radiology Department PHYS: Ivette Engle MD [address] : 1995 AGE: 27 SEX: F [place], [place] [address] LOC: F.ERS PHONE #: [phone] EXAM DATE: 05/31/2022 STATUS: REG ER FAX #: [phone] RAD NO: Page 3 Signed ReportPOCT FLU A AND B (MOLECULAR)2019-05-31 19:52:00 Test Item Value Reference Range Interpretation Comments POCT INFLUENZA A (test code = negative Negative - Negative 3840) POCT INFLUENZA B (test code = negative Negative - Negative 3841) [facility]2019-05-31 19:52:00 Test Item Value Reference Range Interpretation Comments POCT INFLUENZA A (test code = negative Negative - Negative 3840) POCT INFLUENZA B (test code = negative Negative - Negative 3841) [facility]2016-[facility]-02 22:04:00 Test Item Value Reference Range Interpretation Comments MCH (test code = MCH) 30.5 pg 27.0-31.0 [facility] [id number] 22:04:00 Test Item Value Reference Range Interpretation Comments WBC (test code = WBC) 8.5 3.7-10.4 [facility] [id number] 22:04:00 Test Item Value Reference Range Interpretation Comments RBC (test code = RBC) 3.81 4.20-5.40 [facility] [id number] 22:04:00 Test Item Value Reference Range Interpretation Comments MCV (test code = MCV) 89.2 80.0-98.0 [facility] [id number] 22:04:00 Test Item Value Reference Range Interpretation Comments Hct (test code = Hct) 34.0 36.0-48.0 [facility] CenterLeopcnwHBRJBTSSTK7750-05-17 22:04:00 Test Item Value Reference Range Interpretation Comments Hgb (test code = Hgb) 11.6 12.0-16.0 [facility] CenterIijgvaaFDDJHYNSCH8221-53-58 22:04:00 Test Item Value Reference Range Interpretation Comments Segs (test code = Segs) 67.9 45.0-75.0 [place] [id number] 22:04:00 Test Item Value Reference Range Interpretation Comments Lymphocytes # (test code = Lymphocytes 1.6 1.0-5.5 #) [facility] Cent[id number] 22:04:00 Test Item Value Reference Range Interpretation Comments Monocytes # (test code 1.0 See_Comment [Aut omated message] The = Monocytes #) system which generated this result tra nsmitted reference range : <=0.8. The reference r felisa was not used to int erpret this result as normal/abnormal . [facility] CenterVanntmzNTSZNVXYFG0550-59-45 22:04:00 Test Item Value Reference Range Interpretation Comments Segs-Bands # (test code = Segs-Bands #) 5.8 1.5-8.1 [facility] CenterUgabxexEYWSZMKSPP0311-86-18 22:04:00 Test Item Value Reference Range Interpretation Comments Basophils (test code = 0.4 See_Comment [Aut omated message] The Basophils) system which ge nerated this result tra nsmitted reference range : <=1.0. The reference r felisa was not used to int erpret this result as normal/abnormal . [facility] C[id number] 22:04:00 Test Item Value Reference Range Interpretation Comments Eosinophils (test code = 0.3 See_Comment [A utomated message] The Eosinophils) system which ge nerated this result tra nsmitted reference range : <=4.0. The reference r felisa was not used to int erpret this result as normal/abnormal . [facility] AreaUbjpovzSNJVYBTEAR6812-35-09 22:04:00 Test Item Value Reference Range Interpretation Comments Monocytes (test code = Monocytes) 11.9 2.0-12.0 [facility]qbhTPJXVAODYG8196-45-23 22:04:00 Test Item Value Reference Range Interpretation Comments Lymphocytes (test code = Lymphocytes) 19.5 20.0-40.0 [facility] [id number] 22:04:00 Test Item Value Reference Range Interpretation Comments ABO/Rh (test code = ABO/Rh) O POS [facility] [id number] 22:04:00 Test Item Value Reference Range Interpretation Comments Antibody Scrn (test Negative (07/11/15 5:04 code = Antibody Scrn) PM) [facility] AreaCHE[facility] [id number] 22:04:00 Test Item Value Reference Range Interpretation Comments Lactic Acid Lvl (test code = Lactic 1.1 0.5-2.2 Acid Lvl) [facility] HospitalZorybyyIDUIZWVMMGAT6584-86-04 22:04:00 Test Item Value Reference Range Interpretation Comments AGAP (test code = AGAP) 13.3 10.0-20.0 [facility] HospitalKvfdpwqBANBYHMKRFAS9218-97-17 22:04:00 Test Item Value Reference Range Interpretation Comments eGFR (test code = eGFR) 71 [facility] HospitalCjzyfmyTMLSJCPHZUCX8489-05-94 22:04:00 Test Item Value Reference Range Interpretation Comments Calcium Lvl (test code = Calcium Lvl) 8.7 8.5-10.5 [facility] HospitalToqbcdxJIDEEOMUKOAF6906-94-72 22:04:00 Test Item Value Reference Range Interpretation Comments CO2 (test code = CO2) 20 24-32 [facility] HospitalNuzihkuYGZBXSOGDDUJ9108-27-00 22:04:00 Test Item Value Reference Range Interpretation Comments Chloride Lvl (test code = Chloride Lvl) 106 95-109 [facility] HospitalErbyjydAPWKPEGSHVDB3720-18-04 22:04:00 Test Item Value Reference Range Interpretation Comments Potassium Lvl (test code = Potassium 3.3 3.5-5.1 Lvl) [facility] HospitalRwpfolsMKNAFEXVZBVH5341-78-00 22:04:00 Test Item Value Reference Range Interpretation Comments Sodium Lvl (test code = Sodium Lvl) 136 135-145 [facility] HospitalLtbiwgiIXUQIUIUIPAZ0882-55-27 22:04:00 Test Item Value Reference Range Interpretation Comments Creatinine Lvl (test code = Creatinine 0.51 0.50-1.40 Lvl) [facility] HospitalFdfhlcsLUUCAOVCWQWO8209-59-14 22:04:00 Test Item Value Reference Range Interpretation Comments BUN (test code = BUN) 3 7-22 [facility] HospitalVwuuuipNUTPZFWVRMLV0066-46-02 22:04:00 Test Item Value Reference Range Interpretation Comments Glucose Lvl (test code = Glucose Lvl) 92 70-99 [facility]du[facility]kkHUOMZEMUTK8541-97-04 22:04:00 Test Item Value Reference Range Interpretation Comments Estimated % Lysis Rapid 6.4 See_Comment [Au tomated message] The (test code = Estimated syste m which generated % Lysis Rapid) this result t ransmitted reference range : <=7.5. The reference r felisa was not used to int erpret this result as normal/abnormal . [facility] CenterDkphjreHFYLZALPJO0689-98-02 22:04:00 Test Item Value Reference Range Interpretation Comments G-value Rapid (test code = G-value 8.1 5.0-11.6 Rapid) [facility] CenterKvwojafROZBCPSGEG0808-50-74 22:04:00 Test Item Value Reference Range Interpretation Comments K-time Rapid (test code = K-time 1.3 min 0.6-2.3 Rapid) [facility] CenterSintwimZZLAQKOVWX2640-42-01 22:04:00 Test Item Value Reference Range Interpretation Comments R-time Rapid (test code = R-time 0.7 min 0.4-0.7 Rapid) [facility] CenterHmcvbedGFVIVCXCXJ4684-05-53 22:04:00 Test Item Value Reference Range Interpretation Comments Angle Rapid (test code = Angle Rapid) 75 64-80 [facility] CenterAlwzkusEALFPXELSZ9292-85-09 22:04:00 Test Item Value Reference Range Interpretation Comments Max Amplitude Rapid (test code = Max 62 mm 52-71 Amplitude Rapid) [facility] CenterIwvkpbrETTMLBTDUU2978-23-99 22:04:00 Test Item Value Reference Range Interpretation Comments Split Point Rapid (test code = Split 0.6 min Point Rapid) [facility] CenterNoyoswnBDTYHURADA6380-89-37 22:04:00 Test Item Value Reference Range Interpretation Comments ACT (TEG) Rapid (test code = ACT (TEG) 113 s 86-118 Rapid) [facility] CenterLzzcokrQFMKTACPZB5243-67-81 22:04:00 Test Item Value Reference Range Interpretation Comments RDW (test code = RDW) 13.4 11.5-14.5 [facility] CenterVneftarRSDXGXNKWU9515-03-66 22:04:00 Test Item Value Reference Range Interpretation Comments MPV (test code = MPV) 8.1 7.4-10.4 [facility] CenterDvzrbhcBHNECRGMDL6546-50-92 22:04:00 Test Item Value Reference Range Interpretation Comments Platelet (test code = Platelet) 241 133-450 [facility] CenterFusvgzxGINUIMYPWP7065-72-91 22:04:00 Test Item Value Reference Range Interpretation Comments MCHC (test code = MCHC) 34.2 32.0-36.0 [facility] CenterWspjovnIMYWPAMQXJ3049-30-77 22:04:00 Test Item Value Reference Range Interpretation Comments MCH (test code = MCH) 30.5 pg 27.0-31.0 [facility] CenterUhmvspuMMLYGZTIGN9638-72-07 22:04:00 Test Item Value Reference Range Interpretation Comments WBC (test code = WBC) 8.5 3.7-10.4 [facility] CenterTpuhhaeXIXBLZZIED3687-15-59 22:04:00 Test Item Value Reference Range Interpretation Comments RBC (test code = RBC) 3.81 4.20-5.40 [facility] CenterBxnzgvvNEPLEXRXUE8248-05-17 22:04:00 Test Item Value Reference Range Interpretation Comments MCV (test code = MCV) 89.2 80.0-98.0 [facility] CenterFishyeiNCIZSXUKWH4611-18-88 22:04:00 Test Item Value Reference Range Interpretation Comments Hct (test code = Hct) 34.0 36.0-48.0 [facility] CenterLkhrvfqRNFXHERULI4187-94-83 22:04:00 Test Item Value Reference Range Interpretation Comments Hgb (test code = Hgb) 11.6 12.0-16.0 [facility] CenterHtpxnluZRJKTVJFYF8256-06-12 22:04:00 Test Item Value Reference Range Interpretation Comments Segs (test code = Segs) 67.9 45.0-75.0 [facility] CenterWowfetyZTUHNWPJKF3149-25-54 22:04:00 Test Item Value Reference Range Interpretation Comments Lymphocytes # (test code = Lymphocytes 1.6 1.0-5.5 #) [facility] CenterZordlkdAFQJWGLTDD3597-19-06 22:04:00 Test Item Value Reference Range Interpretation Comments Monocytes # (test code 1.0 See_Comment [Aut omated message] The = Monocytes #) system which generated this result tra nsmitted reference range : <=0.8. The reference r felisa was not used to int erpret this result as normal/abnormal . [facility] CenterNuxfwgkRYSKTMZBTE9612-53-80 22:04:00 Test Item Value Reference Range Interpretation Comments Segs-Bands # (test code = Segs-Bands #) 5.8 1.5-8.1 [facility]LrfngdmSTFXRJYKMX6160-88-84 22:04:00 Test Item Value Reference Range Interpretation Comments Basophils (test code = 0.4 See_Comment [Aut omated message] The Basophils) system which ge nerated this result tra nsmitted reference range : <=1.0. The reference r felisa was not used to int erpret this result as normal/abnormal . [facility] AreaGasilmeSCUKEATVGD5612-77-59 22:04:00 Test Item Value Reference Range Interpretation Comments Eosinophils (test code = 0.3 See_Comment [A utomated message] The Eosinophils) system which ge nerated this result tra nsmitted reference range : <=4.0. The reference r felisa was not used to int erpret this result as normal/abnormal . [facility] AreaHzcfdluROFHEDMTBE3942-51-76 22:04:00 Test Item Value Reference Range Interpretation Comments Monocytes (test code = Monocytes) 11.9 2.0-12.0 [facility] AreaImghhmyPGJBNCNKGM1309-45-62 22:04:00 Test Item Value Reference Range Interpretation Comments Lymphocytes (test code = Lymphocytes) 19.5 20.0-40.0 [facility] IEAWIWL1362-24-21 22:04:00 Test Item Value Reference Range Interpretation Comments ABO/Rh (test code = ABO/Rh) O POS [employer] UYKEDEJ6793-13-96 22:04:00 Test Item Value Reference Range Interpretation Comments ABO/Rh (test code = ABO/Rh) O POS [facility] IZVDABE8352-04-19 22:04:00 Test Item Value Reference Range Interpretation Comments Antibody Scrn (test Negative (07/11/15 5:04 code = Antibody Scrn) PM) [facility] [employer] NWWIU1497-48-43 22:04:00 Test Item Value Reference Range Interpretation Comments Lactic Acid Lvl (test code = Lactic 1.1 0.5-2.2 Acid Lvl) [facility] HospitalXgbcwhyRKNTQUPXQTCS6650-12-42 22:04:00 Test Item Value Reference Range Interpretation Comments AGAP (test code = AGAP) 13.3 10.0-20.0 [facility] HospitalAmqugbsBUCWHZPAUXTF8108-96-82 22:04:00 Test Item Value Reference Range Interpretation Comments eGFR (test code = eGFR) 71 [facility] HospitalKykjmptRIUMXVZVEQNJ9739-16-32 22:04:00 Test Item Value Reference Range Interpretation Comments Calcium Lvl (test code = Calcium Lvl) 8.7 8.5-10.5 [facility] HospitalOnfbhygIHAPLJZFAKGP3561-23-77 22:04:00 Test Item Value Reference Range Interpretation Comments CO2 (test code = CO2) 20 -32 [facility] HZUFXMU9907-80-88 22:04:00 Test Item Value Reference Range Interpretation Comments Antibody Scrn (test Negative (07/11/15 5:04 code = Antibody Scrn) PM) [facility] HospitalWodkybeBHBVIXKGVHXZ6670-17-25 22:04:00 Test Item Value Reference Range Interpretation Comments Chloride Lvl (test code = Chloride Lvl) 106 95-109 [facility] HospitalOddnqmpHRTHNSZEWNJF9768-25-68 22:04:00 Test Item Value Reference Range Interpretation Comments Potassium Lvl (test code = Potassium 3.3 3.5-5.1 Lvl) [facility] HospitalEsjhrlzAQQELHOVVFBJ0927-06-41 22:04:00 Test Item Value Reference Range Interpretation Comments Sodium Lvl (test code = Sodium Lvl) 136 135-145 [facility] HospitalAhsdkoaVRPMISUVLOGB5138-06-16 22:04:00 Test Item Value Reference Range Interpretation Comments Creatinine Lvl (test code = Creatinine 0.51 0.50-1.40 Lvl) [facility] HospitalOgimbhbUZBFBRANDGWD4762-95-80 22:04:00 Test Item Value Reference Range Interpretation Comments BUN (test code = BUN) 3 7-22 [facility] HospitalKofrnclGSMADCLINLGK6205-85-64 22:04:00 Test Item Value Reference Range Interpretation Comments Glucose Lvl (test code = Glucose Lvl) 92 70-99 [facility] AreaHumpjxfFPUTAVDAJL2305-52-89 22:04:00 Test Item Value Reference Range Interpretation Comments Estimated % Lysis Rapid (test code = 6.4 <=7.5 Estimated % Lysis Rapid) [facility] CenterVaudhfvVOKXFYAHRF5097-10-03 22:04:00 Test Item Value Reference Range Interpretation Comments G-value Rapid (test code = G-value 8.1 5.0-11.6 Rapid) [facility] CenterHjrbbjhOAHDJGDJOF9839-96-85 22:04:00 Test Item Value Reference Range Interpretation Comments K-time Rapid (test code = K-time 1.3 min 0.6-2.3 Rapid) [facility] CenterJnbabgrMBZTFPHXIA0832-27-92 22:04:00 Test Item Value Reference Range Interpretation Comments R-time Rapid (test code = R-time 0.7 min 0.4-0.7 Rapid) [facility]2016-05-02 22:04:00 Test Item Value Reference Range Interpretation Comments Lactic Acid Lvl (test code = Lactic 1.1 0.5-2.2 Acid Lvl) [facility] CenterYqsmvnyQODPJZRZXJ9971-09-06 22:04:00 Test Item Value Reference Range Interpretation Comments Angle Rapid (test code = Angle Rapid) 75 64-80 [facility] CenterLljxyjrIHWKRIHIOV4706-73-01 22:04:00 Test Item Value Reference Range Interpretation Comments Max Amplitude Rapid (test code = Max 62 mm 52-71 Amplitude Rapid) [facility] CenterNohjrkqCLKHEIOPFB7867-53-84 22:04:00 Test Item Value Reference Range Interpretation Comments Split Point Rapid (test code = Split 0.6 min Point Rapid) [facility] CenterHeqgetiYOQHBQXXCB9137-82-62 22:04:00 Test Item Value Reference Range Interpretation Comments ACT (TEG) Rapid (test code = ACT (TEG) 113 s 86-118 Rapid) [facility] CenterEabcnttQFFZAVCWAD6699-36-87 22:04:00 Test Item Value Reference Range Interpretation Comments RDW (test code = RDW) 13.4 11.5-14.5 [facility] CenterBprgjujODGECBIFHR3763-14-06 22:04:00 Test Item Value Reference Range Interpretation Comments MPV (test code = MPV) 8.1 7.4-10.4 [facility] CenterPzzqrsdIMJFXQEKFE8486-61-20 22:04:00 Test Item Value Reference Range Interpretation Comments Platelet (test code = Platelet) 241 133-450 [facility] CenterCszinzcSHJIZDSUIF8360-92-66 22:04:00 Test Item Value Reference Range Interpretation Comments MCHC (test code = MCHC) 34.2 32.0-36.0 [facility] AreaAgezaqwGBGTTWKBSM1289-16-67 22:04:00 Test Item Value Reference Range Interpretation Comments MCH (test code = MCH) 30.5 pg 27.0-31.0 [facility] HospitalBlyrbdeFGKKAPFWDB6692-22-09 22:04:00 Test Item Value Reference Range Interpretation Comments WBC (test code = WBC) 8.5 3.7-10.4 [facility]QAIPGZWVGDVF2644-42-60 22:04:00 Test Item Value Reference Range Interpretation Comments AGAP (test code = AGAP) 13.3 10.0-20.0 [facility] HospitalJnjmtbrRLKVOREDRT3921-52-68 22:04:00 Test Item Value Reference Range Interpretation Comments RBC (test code = RBC) 3.81 4.20-5.40 [facility] HospitalTuuwtlwNXPPFYMIHF4790-29-28 22:04:00 Test Item Value Reference Range Interpretation Comments MCV (test code = MCV) 89.2 80.0-98.0 [facility] CenterWyicvaeVJMPAJXOHT4449-84-10 22:04:00 Test Item Value Reference Range Interpretation Comments Hct (test code = Hct) 34.0 36.0-48.0 [facility] HospitalBlwfnbdDKESZPRKUA6324-01-58 22:04:00 Test Item Value Reference Range Interpretation Comments Hgb (test code = Hgb) 11.6 12.0-16.0 [facility] HospitalRrjrhixNYCIIISLOM2186-39-23 22:04:00 Test Item Value Reference Range Interpretation Comments Segs (test code = Segs) 67.9 45.0-75.0 [facility] CenterLjzqhyhGIOFSLNGMF0091-13-82 22:04:00 Test Item Value Reference Range Interpretation Comments Lymphocytes # (test code = Lymphocytes 1.6 1.0-5.5 #) [facility] HospitalZrzzfboWXVYKXRVQA9166-94-88 22:04:00 Test Item Value Reference Range Interpretation Comments Monocytes # (test code = Monocytes #) 1.0 <=0.8 [facility] CenterPdlqvfgNRWIPRVZQN1074-55-10 22:04:00 Test Item Value Reference Range Interpretation Comments Segs-Bands # (test code = Segs-Bands #) 5.8 1.5-8.1 [facility] CenterThrvpozKXABYWWMAP9114-74-64 22:04:00 Test Item Value Reference Range Interpretation Comments Basophils (test code = Basophils) 0.4 <=1.0 [facility] CenterMxjurwdYIHCLQUWUJ4375-08-86 22:04:00 Test Item Value Reference Range Interpretation Comments Eosinophils (test code = Eosinophils) 0.3 <=4.0 [facility] HospitalXpagwjoSQTJERLNAOSX4831-85-47 22:04:00 Test Item Value Reference Range Interpretation Comments eGFR (test code = eGFR) 71 [facility] CenterTkitoqsDAQDFHJWIJ9520-46-07 22:04:00 Test Item Value Reference Range Interpretation Comments Monocytes (test code = Monocytes) 11.9 2.0-12.0 [facility] CenterLjcpbvjMFXGRVKFGJ1872-01-35 22:04:00 Test Item Value Reference Range Interpretation Comments Lymphocytes (test code = Lymphocytes) 19.5 20.0-40.0 [facility] HospitalBurldsqDZPTFCYNPPVC9580-91-79 22:04:00 Test Item Value Reference Range Interpretation Comments Calcium Lvl (test code = Calcium Lvl) 8.7 8.5-10.5 [facility] HospitalBfbxhgcOEBSWZMDYWHL0136-63-05 22:04:00 Test Item Value Reference Range Interpretation Comments CO2 (test code = CO2) 20 24-32 [facility] HospitalLivlguvFQCRSKZVKGNA9988-34-37 22:04:00 Test Item Value Reference Range Interpretation Comments Chloride Lvl (test code = Chloride Lvl) 106 95-109 [facility] HospitalXvztijaQBGOHAACGXPW3494-50-08 22:04:00 Test Item Value Reference Range Interpretation Comments Potassium Lvl (test code = Potassium 3.3 3.5-5.1 Lvl) [facility] HospitalRnbvxopUHCOBRAXMAIJ4950-42-15 22:04:00 Test Item Value Reference Range Interpretation Comments Sodium Lvl (test code = Sodium Lvl) 136 135-145 [facility] HospitalUcwwhugOAWJPPWTEYNE4548-45-25 22:04:00 Test Item Value Reference Range Interpretation Comments Creatinine Lvl (test code = Creatinine 0.51 0.50-1.40 Lvl) [facility] HospitalNuplribRIBEJZBKAKYC1240-19-12 22:04:00 Test Item Value Reference Range Interpretation Comments BUN (test code = BUN) 3 7-22 [facility] HospitalCyvxfsdRMMPVPLLMGZO1828-89-53 22:04:00 Test Item Value Reference Range Interpretation Comments Glucose Lvl (test code = Glucose Lvl) 92 70-99 [facility] CenterFvzmpksVIZDBYSXDF0611-01-73 22:04:00 Test Item Value Reference Range Interpretation Comments Estimated % Lysis Rapid 6.4 See_Comment [Au tomated message] The (test code = Estimated syste m which generated % Lysis Rapid) this result t ransmitted reference range : <=7.5. The reference r felisa was not used to int erpret this result as normal/abnormal . [facility] CenterAxihgakCILMWFHTOH8926-25-28 22:04:00 Test Item Value Reference Range Interpretation Comments G-value Rapid (test code = G-value 8.1 5.0-11.6 Rapid) [place] [address]-05-02 22:04:00 Test Item Value Reference Range Interpretation Comments K-time Rapid (test code = K-time 1.3 min 0.6-2.3 Rapid) [facility] CenterKgndgrkPYGAVJXKBN5627-22-83 22:04:00 Test Item Value Reference Range Interpretation Comments R-time Rapid (test code = R-time 0.7 min 0.4-0.7 Rapid) [facility] CenterOojbtwlRQXQJOMBQW5959-12-47 22:04:00 Test Item Value Reference Range Interpretation Comments Angle Rapid (test code = Angle Rapid) 75 64-80 [facility] CenterEolaiomVWMAMOIPDZ7841-77-52 22:04:00 Test Item Value Reference Range Interpretation Comments Max Amplitude Rapid (test code = Max 62 mm 52-71 Amplitude Rapid) [facility] CenterXuekwlvIJYLZWBMHN5280-58-01 22:04:00 Test Item Value Reference Range Interpretation Comments Split Point Rapid (test code = Split 0.6 min Point Rapid) [facility] CenterMtwebmzJXOMJEIJSI9259-73-16 22:04:00 Test Item Value Reference Range Interpretation Comments ACT (TEG) Rapid (test code = ACT (TEG) 113 s 86-118 Rapid) [facility] CenterRcpvnnnXLFIZOIKUD5478-88-86 22:04:00 Test Item Value Reference Range Interpretation Comments RDW (test code = RDW) 13.4 11.5-14.5 [facility] CenterWoetbrvXFWKPXRZDG6895-72-64 22:04:00 Test Item Value Reference Range Interpretation Comments MPV (test code = MPV) 8.1 7.4-10.4 [facility] CenterVvmdnreSNEUPBUNFD7250-33-56 22:04:00 Test Item Value Reference Range Interpretation Comments Platelet (test code = Platelet) 241 133-450 [facility] CenterPjbpxojKNEWCRYKTM0490-46-32 22:04:00 Test Item Value Reference Range Interpretation Comments MCHC (test code = MCHC) 34.2 32.0-36.0 [facility] CenterVujwlxcSKFULXIVTQ6402-06-03 22:04:00 Test Item Value Reference Range Interpretation Comments MCH (test code = MCH) 30.5 pg 27.0-31.0 [facility] CenterJixnydlSBXFBBKTIG1827-05-06 22:04:00 Test Item Value Reference Range Interpretation Comments WBC (test code = WBC) 8.5 3.7-10.4 [facility] CenterFpgmpecWJKBPSLDGB3386-16-03 22:04:00 Test Item Value Reference Range Interpretation Comments RBC (test code = RBC) 3.81 4.20-5.40 [facility] CenterQfhktfcOXQDLEYMTL5033-98-29 22:04:00 Test Item Value Reference Range Interpretation Comments MCV (test code = MCV) 89.2 80.0-98.0 [facility] CenterQoqymtxXLCKAGIGVO3804-38-07 22:04:00 Test Item Value Reference Range Interpretation Comments Hct (test code = Hct) 34.0 36.0-48.0 [facility] CenterJftimwhZBMXOMVSIG6546-23-11 22:04:00 Test Item Value Reference Range Interpretation Comments Hgb (test code = Hgb) 11.6 12.0-16.0 [facility] CenterGsjkfyxISVDFLUYBM9601-95-05 22:04:00 Test Item Value Reference Range Interpretation Comments Segs (test code = Segs) 67.9 45.0-75.0 [facility] CenterLbjyagwHNEYFGKHAY6313-02-33 22:04:00 Test Item Value Reference Range Interpretation Comments Lymphocytes # (test code = Lymphocytes 1.6 1.0-5.5 #) [facility] CenterAltjzruVAASTGDAZH4303-74-73 22:04:00 Test Item Value Reference Range Interpretation Comments Monocytes # (test code 1.0 See_Comment [Aut omated message] The = Monocytes #) system which generated this result tra nsmitted reference range : <=0.8. The reference r felisa was not used to int erpret this result as normal/abnormal . [facility] CenterUwtuyxxOCVYBOIYDW5929-98-97 22:04:00 Test Item Value Reference Range Interpretation Comments Segs-Bands # (test code = Segs-Bands #) 5.8 1.5-8.1 [place] [address]-05-02 22:04:00 Test Item Value Reference Range Interpretation Comments Basophils (test code = 0.4 See_Comment [Aut omated message] The Basophils) system which ge nerated this result tra nsmitted reference range : <=1.0. The reference r felisa was not used to int erpret this result as normal/abnormal . [facility] CenterXngitfkRXDIGUAYXE1541-81-66 22:04:00 Test Item Value Reference Range Interpretation Comments Eosinophils (test code = 0.3 See_Comment [A utomated message] The Eosinophils) system which ge nerated this result tra nsmitted reference range : <=4.0. The reference r felisa was not used to int erpret this result as normal/abnormal . [facility] AreaKqckihpBRESAYGDHJ7605-58-82 22:04:00 Test Item Value Reference Range Interpretation Comments Monocytes (test code = Monocytes) 11.9 2.0-12.0 [facility] CenterQqzimglCMKRCAKFLE9459-52-88 22:04:00 Test Item Value Reference Range Interpretation Comments Lymphocytes (test code = Lymphocytes) 19.5 20.0-40.0 [facility] XDOCEUW8514-35-28 22:04:00 Test Item Value Reference Range Interpretation Comments ABO/Rh (test code = ABO/Rh) O POS [facility] QGZBZFD7656-75-61 22:04:00 Test Item Value Reference Range Interpretation Comments Antibody Scrn (test Negative (07/11/15 5:04 code = Antibody Scrn) PM) [facility] [employer]CHEM LGUHC9434-50-21 22:04:00 Test Item Value Reference Range Interpretation Comments Lactic Acid Lvl (test code = Lactic 1.1 0.5-2.2 Acid Lvl) [facility]DzinpyjSBNJRDTNHFYN1912-29-29 22:04:00 Test Item Value Reference Range Interpretation Comments AGAP (test code = AGAP) 13.3 10.0-20.0 [facility]iscoBlixqfzZDLHEBQMEWWX3973-60-58 22:04:00 Test Item Value Reference Range Interpretation Comments eGFR (test code = eGFR) 71 [facility] HospitalVlbuptkMVJXYWKMGKVW4967-75-66 22:04:00 Test Item Value Reference Range Interpretation Comments Calcium Lvl (test code = Calcium Lvl) 8.7 8.5-10.5 [facility] HospitalRibiybpNDWFIZQWAAPP5136-96-62 22:04:00 Test Item Value Reference Range Interpretation Comments CO2 (test code = CO2) 20 24-32 [facility] HospitalSapyrkkLQYAUTDJWMPE3283-28-46 22:04:00 Test Item Value Reference Range Interpretation Comments Chloride Lvl (test code = Chloride Lvl) 106 95-109 [facility] HospitalDhdothfXRDUESOVKCOH0263-78-89 22:04:00 Test Item Value Reference Range Interpretation Comments Potassium Lvl (test code = Potassium 3.3 3.5-5.1 Lvl) [facility] HospitalDiujukdIFXEJDICAMZN2436-77-16 22:04:00 Test Item Value Reference Range Interpretation Comments Sodium Lvl (test code = Sodium Lvl) 136 135-145 [facility] HospitalPrzobgkKSSNEIPLODMM1889-95-86 22:04:00 Test Item Value Reference Range Interpretation Comments Creatinine Lvl (test code = Creatinine 0.51 0.50-1.40 Lvl) [facility] HospitalRtvglgrCBAZCNRRCURT9619-15-99 22:04:00 Test Item Value Reference Range Interpretation Comments BUN (test code = BUN) 3 7-22 [facility] HospitalRliffwfSIMDXAIFOHLQ0492-29-69 22:04:00 Test Item Value Reference Range Interpretation Comments Glucose Lvl (test code = Glucose Lvl) 92 70-99 [facility] CenterMjwzrcgCTOVTDIXBW8430-63-91 22:04:00 Test Item Value Reference Range Interpretation Comments Estimated % Lysis Rapid 6.4 See_Comment [Au tomated message] The (test code = Estimated syste m which generated % Lysis Rapid) this result t ransmitted reference range : <=7.5. The reference r felisa was not used to int erpret this result as normal/abnormal . [facility] CenterPirobakTJWYTXLGEQ7459-34-41 22:04:00 Test Item Value Reference Range Interpretation Comments G-value Rapid (test code = G-value 8.1 5.0-11.6 Rapid) [facility] CenterMytlrtfFUOEGCDWRN9444-38-68 22:04:00 Test Item Value Reference Range Interpretation Comments K-time Rapid (test code = K-time 1.3 min 0.6-2.3 Rapid) [facility] CenterLflnnzySKYMZPUDSB0592-87-11 22:04:00 Test Item Value Reference Range Interpretation Comments R-time Rapid (test code = R-time 0.7 min 0.4-0.7 Rapid) [facility] CenterLlqdavuRTYOWICWTI8367-01-26 22:04:00 Test Item Value Reference Range Interpretation Comments Angle Rapid (test code = Angle Rapid) 75 64-80 [facility] CenterTqsycyzHMQLLUQRVT6250-35-61 22:04:00 Test Item Value Reference Range Interpretation Comments Max Amplitude Rapid (test code = Max 62 mm 52-71 Amplitude Rapid) [facility] CenterUfvqpwuVETSNNICDL6745-93-81 22:04:00 Test Item Value Reference Range Interpretation Comments Split Point Rapid (test code = Split 0.6 min Point Rapid) [facility] CenterPnutucuKQUKXRHMEZ1117-22-34 22:04:00 Test Item Value Reference Range Interpretation Comments ACT (TEG) Rapid (test code = ACT (TEG) 113 s 86-118 Rapid) [facility] CenterFraztpfWDGYZKVOQT2492-57-49 22:04:00 Test Item Value Reference Range Interpretation Comments RDW (test code = RDW) 13.4 11.5-14.5 [facility] CenterHauqnpdJOOEPQUCTN8137-50-68 22:04:00 Test Item Value Reference Range Interpretation Comments MPV (test code = MPV) 8.1 7.4-10.4 [facility] AreaSgbpinmASLNEJUOGD6823-65-77 22:04:00 Test Item Value Reference Range Interpretation Comments Platelet (test code = Platelet) 241 133-450 [facility] CenterAhrobidCVHGQHHGCV6784-19-39 22:04:00 Test Item Value Reference Range Interpretation Comments MCHC (test code = MCHC) 34.2 32.0-36.0 [facility] CenterPat[facility] [place] VUQBTTM9743-68-47 22:04:00 Test Item Value Reference Range Interpretation Comments ABO/Rh (test code = ABO/Rh) O POS [facility] [employer] SHTQELR8058-77-32 22:04:00 Test Item Value Reference Range Interpretation Comments Antibody Scrn (test Negative (07/11/15 5:04 code = Antibody Scrn) PM) [facility] AreaCHEM INDRL3649-51-90 22:04:00 Test Item Value Reference Range Interpretation Comments Lactic Acid Lvl (test code = Lactic 1.1 0.5-2.2 Acid Lvl) [facility]bu[id number] 22:04:00 Test Item Value Reference Range Interpretation Comments AGAP (test code = AGAP) 13.3 10.0-20.0 [facility]6134[facility]35-05 22:04:00 Test Item Value Reference Range Interpretation Comments eGFR (test code = eGFR) 71 [facility] HospitalGbosrzmVCOKZXHKTJLG0209-67-50 22:04:00 Test Item Value Reference Range Interpretation Comments Calcium Lvl (test code = Calcium Lvl) 8.7 8.5-10.5 [facility] HospitalPsjodklZIZELBXRGFVA3571-32-47 22:04:00 Test Item Value Reference Range Interpretation Comments CO2 (test code = CO2) 20 24-32 [facility] HospitalYpkhmslXFPYUTDPGPMG1245-32-89 22:04:00 Test Item Value Reference Range Interpretation Comments Chloride Lvl (test code = Chloride Lvl) 106 95-109 [facility] HospitalWdbimgrIZIUEMOBEJLZ0638-36-80 22:04:00 Test Item Value Reference Range Interpretation Comments Potassium Lvl (test code = Potassium 3.3 3.5-5.1 Lvl) [facility] HospitalVnazlblXTXIMOIZIPFQ2899-28-76 22:04:00 Test Item Value Reference Range Interpretation Comments Sodium Lvl (test code = Sodium Lvl) 136 135-145 [facility] HospitalQnowcocGNQSGVRIRBFH5654-27-07 22:04:00 Test Item Value Reference Range Interpretation Comments Creatinine Lvl (test code = Creatinine 0.51 0.50-1.40 Lvl) [facility] HospitalYwamngsTCKVKSECKALB0902-36-39 22:04:00 Test Item Value Reference Range Interpretation Comments BUN (test code = BUN) 3 7-22 [facility] HospitalZxwkcryYQAGWIIFDCQC2628-68-46 22:04:00 Test Item Value Reference Range Interpretation Comments Glucose Lvl (test code = Glucose Lvl) 92 70-99 [facility]SlhwyhgHDLBZWMOTM8125-57-17 22:04:00 Test Item Value Reference Range Interpretation Comments Estimated % Lysis Rapid (test code = 6.4 <=7.5 Estimated % Lysis Rapid) [facility] CenterSvcsmufILQICMCQVN9927-61-51 22:04:00 Test Item Value Reference Range Interpretation Comments G-value Rapid (test code = G-value 8.1 5.0-11.6 Rapid) [facility] CenterRgcsgvlLBNRHCZRMN9617-01-92 22:04:00 Test Item Value Reference Range Interpretation Comments K-time Rapid (test code = K-time 1.3 min 0.6-2.3 Rapid) [facility] CenterBpcnywfFOWLGFDWMR3493-15-24 22:04:00 Test Item Value Reference Range Interpretation Comments R-time Rapid (test code = R-time 0.7 min 0.4-0.7 Rapid) [facility] CenterOngfeavTKTARWZHCJ2333-68-82 22:04:00 Test Item Value Reference Range Interpretation Comments Angle Rapid (test code = Angle Rapid) 75 64-80 [facility] CenterEfgiylpGSUDDSVGGW3097-21-77 22:04:00 Test Item Value Reference Range Interpretation Comments Max Amplitude Rapid (test code = Max 62 mm 52-71 Amplitude Rapid) [facility] CenterQmpmiyhMCRDCBPRPD1909-37-32 22:04:00 Test Item Value Reference Range Interpretation Comments Split Point Rapid (test code = Split 0.6 min Point Rapid) [facility] CenterXxwmhzhBZHXMDHPCM3350-09-67 22:04:00 Test Item Value Reference Range Interpretation Comments ACT (TEG) Rapid (test code = ACT (TEG) 113 s 86-118 Rapid) [facility] CenterZnjklbrIXPYKSYSEA0756-44-46 22:04:00 Test Item Value Reference Range Interpretation Comments RDW (test code = RDW) 13.4 11.5-14.5 [facility] CenterGfmgfjlIJXPCTIXLT6354-13-14 22:04:00 Test Item Value Reference Range Interpretation Comments MPV (test code = MPV) 8.1 7.4-10.4 [facility] CenterGeqyslzUQCZBKBXJI5750-19-59 22:04:00 Test Item Value Reference Range Interpretation Comments Platelet (test code = Platelet) 241 133-450 [facility] CenterEhnrmvrOSKWNSEYQN2841-86-30 22:04:00 Test Item Value Reference Range Interpretation Comments MCHC (test code = MCHC) 34.2 32.0-36.0 [facility] CenterWzpbpqzJUGMJXLAOP4857-72-75 22:04:00 Test Item Value Reference Range Interpretation Comments MCH (test code = MCH) 30.5 pg 27.0-31.0 [facility] CenterVxtuomgLUNEBGFNXB8009-11-89 22:04:00 Test Item Value Reference Range Interpretation Comments WBC (test code = WBC) 8.5 3.7-10.4 [facility] CenterIsyugbhJRMRBIMNVZ9769-58-45 22:04:00 Test Item Value Reference Range Interpretation Comments RBC (test code = RBC) 3.81 4.20-5.40 [facility] CenterGxgqhckGLSLYTITOR8107-42-90 22:04:00 Test Item Value Reference Range Interpretation Comments MCV (test code = MCV) 89.2 80.0-98.0 [place] [id number] 22:04:00 Test Item Value Reference Range Interpretation Comments Hct (test code = Hct) 34.0 36.0-48.0 [facility] CenterSaqvoahPLQVGRCKJU2390-18-30 22:04:00 Test Item Value Reference Range Interpretation Comments Hgb (test code = Hgb) 11.6 12.0-16.0 [facility] CenterYbvgvuqEBIOBIKBKI2359-48-85 22:04:00 Test Item Value Reference Range Interpretation Comments Segs (test code = Segs) 67.9 45.0-75.0 [facility] CenterUgwlzikXUEHFHGCMM6682-67-71 22:04:00 Test Item Value Reference Range Interpretation Comments Lymphocytes # (test code = Lymphocytes 1.6 1.0-5.5 #) [facility] CenterXjrtqrhOOOFPKPZJF5044-51-72 22:04:00 Test Item Value Reference Range Interpretation Comments Monocytes # (test code = Monocytes #) 1.0 <=0.8 [facility] CenterLmdbhhsEDLUCJEAZL0235-67-64 22:04:00 Test Item Value Reference Range Interpretation Comments Segs-Bands # (test code = Segs-Bands #) 5.8 1.5-8.1 [facility] CenterCovckopSMHPGRKYSU0364-38-71 22:04:00 Test Item Value Reference Range Interpretation Comments Basophils (test code = Basophils) 0.4 <=1.0 [facility] CenterUxrqmonSFPAWBVPZW2610-19-32 22:04:00 Test Item Value Reference Range Interpretation Comments Eosinophils (test code = Eosinophils) 0.3 <=4.0 [facility] CenterGsdkhfxBOFIUKUFLS7572-58-85 22:04:00 Test Item Value Reference Range Interpretation Comments Monocytes (test code = Monocytes) 11.9 2.0-12.0 [facility] CenterBdrpnznTNFWYJWAWJ7457-68-17 22:04:00 Test Item Value Reference Range Interpretation Comments Lymphocytes (test code = Lymphocytes) 19.5 20.0-40.0 [facility]
[2023-01-17] MEDS ORDERED: IBUPROFEN 400 MG TAB ONE
[2023-01-17] MEDS ORDERED: IBUPROFEN 200 MG TAB PO ONE
[2023-01-17 01:29] LABS: SARS-COV-2 RT PCR NEGATIVE (NEGATIVE)
--- NOTE | 2023-01-17 01:39 | EDPHYS ---
Physician Documentation [facility] Name: Kandy Sanders Age: 27 yrs Sex: Female : 1995 Arrival Date: 01/16/2023 Time: 23:26 Bed 10 Private MD: ED Physician Sahil Segundo HPI: 01/16 23:43 This 27 yrs old Female presents to ER via Ambulatory with complaints of Fever, kb Sore Throat. 23:43 Patient is a 27-year-old female who presents for cough, congestion, sore throat, body kb aches, fever, chills for 3 days.. 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 Flu vaccine is not up to date. It has been more than one year since last vaccine. - Social history:: Smoking status: Patient denies any tobacco usage or history of. Patient/guardian denies using alcohol, street drugs. ROS: 23:43 Abdomen/GI: Negative for abdominal pain, nausea, vomiting, diarrhea, and constipation, kb 23:43 Constitutional: Positive for body aches, chills, fatigue, fever, malaise, 23:43 ENT: Positive for rhinorrhea, sore throat, 23:43 Respiratory: Positive for cough, 23:43 All other systems are negative, Exam: 23:43 Constitutional: This is a well developed, well nourished patient who is awake, alert, kb and in no acute distress. Head/Face: Normocephalic, atraumatic. ENT: Moist Mucous membranes Cardiovascular: Regular rate Respiratory: Respirations even and unlabored. No increased work of breathing. Talking in full sentences Abdomen/GI: Soft, non-tender. No distention Skin: Warm, dry with normal turgor. Normal color. MS/ Extremity: Pulses equal, no cyanosis. Neurovascular intact. Full, normal range of motion. Neuro: Awake and alert, GCS 15, oriented to person, place, time, and situation. Moves all extremities. Normal gait. Vital Signs: 23:38 BP 108 / 76; Pulse 84; Resp 17 S; Temp 100.7(O); Pulse Ox 100% on R/A; Weight 54.43 kg lg3 (R); Height 5 ft. 3 in. (R); 01/17 01:47 Temp 98.9(O); as6 01/16 23:38 Body Mass Index 21.26 (54.43 kg, 160.02 cm) lg3 MDM: 01/16 23:33 Patient medically screened. kb 23:43 Differential diagnosis: Flu, COVID, strep, RSV, URI. Data reviewed: vital signs, nurses kb notes. 23:44 Test considered but Not performed: X-ray: Chest x-ray considered but lungs clear kb bilaterally, respirations even and unlabored, oxygen saturation 100% on room air.. 01/17 01:33 Counseling: I had a detailed discussion with the patient and/or guardian regarding the kb historical points, exam findings, and any diagnostic results supporting the discharge/admit diagnosis, lab results, the need for outpatient follow up, a family practitioner, to return to the emergency department if symptoms worsen or persist or if there are any questions or concerns that arise at home. 01/16 23:42 Order name: COVID-19/FLU A+B/RSV; Complete Time: 01:38 kb 01/16 23:42 Order name: Strep; Complete Time: 01:09 kb 01/17 01:06 Order name: Throat Culture EDMS Administered Medications: 01/16 23:50 Drug: Ibuprofen PO 600 mg PO once Route: PO; lg3 01/17 01:48 Follow up: Response: No adverse reaction as6 Disposition Summary: 01/17/23 01:38 Discharge Ordered Notes: Location: Home kb Condition: Stable kb Diagnosis - Influenza due to identified novel influenza A virus - B kb Followup: kb - With: Emergency Department - When: As needed - Reason: Worsening of condition Followup: kb - With: Private Physician - When: 2 - 3 days - Reason: Recheck today's complaints, Continuance of care, Re-evaluation by your physician Discharge Instructions: - Discharge Summary Sheet kb - Influenza, Adult, Hxtc-hf-Gcmc kb Forms: - Medication Reconciliation Form kb - Thank You Letter kb - Antibiotic Education kb - Prescription Opioid Use kb - Patient Portal Instructions kb - Leadership Thank You Letter kb Signatures: Dispatcher [employer] Ginger Gordillo, Maureen Valentine RN RN lg3 Kayden Moreno RN as6 Corrections: (The following items were deleted from the chart) 01/16 23:43 23:41 Allergies: steroids; lg3 lg3
--- NOTE | 2023-01-17 01:39 | ER ---
Nurse's Notes [facility] Name: Kandy Sanders Age: 27 yrs Sex: Female : 1995 Arrival Date: 01/16/2023 Time: 23:26 Bed 10 Private MD: Diagnosis: Influenza due to identified novel influenza A virus-B Presentation: 01/16 23:38 Chief complaint: Patient states: fever, chills, body aches, sore throat X 3 days. lg3 taking Tylenol at home. Coronavirus screen: At this time, unable to obtain information related to travel outside the [place] Client presents with at least one sign or symptom that may indicate coronavirus-19. Standard/surgical mask placed on the client. Ebola Screen: No symptoms or risks identified at this time. Initial Sepsis Screen: Does the patient meet any 2 criteria? No. Patient's initial sepsis screen is negative. Does the patient have a suspected source of infection? No. Patient's initial sepsis screen is negative. Risk Assessment: Do you want to hurt yourself or someone else? Patient reports no desire to harm self or others. Onset of symptoms is unknown. 23:38 Method Of Arrival: Ambulatory lg3 23:38 Acuity: FENG 4 lg3 Triage Assessment: 23:41 General: Appears in no apparent distress. uncomfortable, Behavior is calm, cooperative. lg3 Pain: Complains of pain in generalized body aches. EENT: No deficits noted. Reports difficulty swallowing nasal congestion nasal discharge. Neuro: No deficits noted. [place]kee Agitation-Sedation Scale (RASS): 0 - Alert and Calm Level of Consciousness is awake, alert, obeys commands, Oriented to person, place, time, situation. Cardiovascular: No deficits noted. Denies chest pain, Capillary refill < 3 seconds Clubbing of nail beds is absent JVD is absent Patient's skin is warm and dry. Respiratory: No deficits noted. Airway is patent Respiratory effort is even, unlabored, Respiratory pattern is regular, symmetrical. GI: No deficits noted. No signs and/or symptoms were reported involving the gastrointestinal system. : No deficits noted. No signs and/or symptoms were reported regarding the genitourinary system. Derm: No deficits noted. No signs and/or symptoms reported regarding the dermatologic system. Skin is intact, is healthy with good turgor, Skin is dry, Skin is normal, Skin temperature is warm. Musculoskeletal: No deficits noted. Circulation, motion, and sensation intact. Range of motion: intact in all extremities. 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 Flu vaccine is not up to date. It has been more than one year since last vaccine. - Social history:: Smoking status: Patient denies any tobacco usage or history of. Patient/guardian denies using alcohol, street drugs. Screenin/09 01:02 Abuse screen: Denies threats or abuse. Nutritional screening: No deficits noted. vc1 Tuberculosis screening: No symptoms or risk factors identified. 01:03 [facility] ED Fall Risk Assessment (Adult) History of falling in the last 3 months, vc1 including since admission No falls in past 3 months (0 pts) Confusion or Disorientation No (0 pts) Intoxicated or Sedated No (0 pts) Impaired Gait No (0 pts) Mobility Assist Device Used No (0 pt) Altered Elimination No (0 pt) Score/Fall Risk Level 0 - 2 = Low Risk Oriented to surroundings, Maintained a safe environment, Educated pt \T\ family on fall prevention, incl call for assistance when getting out of bed. Vital Signs: 01/16 23:38 BP 108 / 76; Pulse 84; Resp 17 S; Temp 100.7(O); Pulse Ox 100% on R/A; Weight 54.43 kg lg3 (R); Height 5 ft. 3 in. (R); 01/17 01:47 Temp 98.9(O); as6 01/16 23:38 Body Mass Index 21.26 (54.43 kg, 160.02 cm) lg3 ED Course: 01/16 23:30 Patient arrived in ED. ag3 23:33 Ginger Stoner FNP-C [facility]. kb 23:33 Sahil Segundo MD is Attending Physician. kb 23:41 Triage completed. lg3 23:41 Arm band placed on right wrist. lg3 23:50 Strep Sent. lg3 23:50 COVID-19/FLU A+B/RSV Sent. lg3 01/17 01:02 Sybil Baugh, RN is Primary Nurse. vc1 01:03 No provider procedures requiring assistance completed. Patient did not have IV access vc1 during this emergency room visit. 01:48 Bed in low position. Call light in reach. Provided Education on: follow up. as6 Administered Medications: 01/16 23:50 Drug: Ibuprofen PO 600 mg PO once Route: PO; lg3 01/17 01:48 Follow up: Response: No adverse reaction as6 Medication: 01:03 VIS not applicable for this client. vc1 Outcome: 01:38 Discharge ordered by . kb 01:48 Discharged to home ambulatory, as6 01:48 Condition: stable 01:48 Discharge instructions given to patient, Instructed on discharge instructions, follow up and referral plans. Demonstrated understanding of instructions, follow-up care, 01:48 Patient left the ED. as6 Signatures: Ginger Stoner, FISH HATCHERY MANAGER-C FISH HATCHERY MANAGER-Kinsey Kurtz 3 Maureen Toussaint, ENA RN lg3 Kayden Moreno RN RN as6 Sybil Baugh, RN RN vc1 Corrections: (The following items were deleted from the chart) 01/16 23:43 23:41 Allergies: steroids; lg3 lg3
[2023-01-17 01:58] VITALS: BP 108/76; O2SAT 100
[2023-01-17 01:59] VITALS: TEMP 98.9
== END 2023-01-17 01:48 | disposition home or self-care (01) ==
LOC: ER 23:26
DX: J10.1 Influenza due to other identified influenza virus with other respiratory manifestations (principal); Z11.52 Encounter for screening for COVID-19; Z98.82 Breast implant status
CPT/HCPCS: 87070; 87081; 0241U; 99283